=== PATIENT | male | born 1945 | race Two or more races ===

== ENCOUNTER → 2017-02-10 | Outpatient (CLI) | payer MEDICARE, MEDICAID ==
[2016-03-06 07:00] VITALS: BP 93/59
[~2017-02-10] MED LIST: ATOR10TA60 PO; FLUT1DIS3 IH; HYDR-2762 PO; IBUP-1060 PO; METH-38 PO; OMEP20CA9 PO; OXYC-327 PO; POLY17PO29 PO; PROAIR HFA8.5 GM INH; TAMS0.4C2 PO; ZOLP5TAB5 PO
[2017-02-10 11:22] LABS: BASO # 0.1 x10^3/uL (0.0-0.2); BASO % 1 % (0-3); EOS % 3 % (0-3); HEMATOCRIT 47.4 % (39.0-53.0); LYMPH # 2.6 x10^3/uL (1.0-4.8); LYMPH % 38 % (24-48); MEAN CORPUSCULAR HEMOGLOBIN 32 pg (25-35); MEAN CORPUSCULAR HGB CONC 34 g/dL (31-37); MEAN CORPUSCULAR VOLUME 94 fL (79-100); MONO % 9 % (0-9); NEUT % 49 % (31-73); PLATELET COUNT 191 x10^3/uL (140-400); RED BLOOD COUNT 5.05 x10^6/uL (4.30-5.70); RED CELL DISTRIBUTION WIDTH 13.3 % (11.5-14.5); WHITE BLOOD COUNT 6.8 x10^3/uL (4.0-11.0)
[2017-02-10 11:24] LABS: % SAT IRON 32 % (15-34); IRON,SERUM 120 ug/dL (65-175)
[2017-02-10 11:29] LABS: ALBUMIN 3.5 g/dL (3.4-5.0); ALBUMIN/GLOBULIN RATIO 0.8 (1.0-1.7); CALCIUM 8.8 mg/dL (8.5-10.1); GFR 73.2; TOTAL BILIRUBIN 0.6 mg/dL (0.2-1.0); TOTAL PROTEIN 7.7 g/dL (6.4-8.2); URIC ACID 4.7 mg/dL (3.5-7.2)
[2017-02-10 11:30] LABS: CHOLESTEROL/HDL RATIO 2.9
[2017-02-10 11:38] LABS: FOLATE 13.34 ng/ml (3.2-20.0); PROSTATE SPECIFIC ANTIGEN 0.16 ng/mL (0.00-4.00)
[2017-02-10 11:39] LABS: FREE T4 1.09 ng/dL (0.76-1.46)
[2017-02-10 18:10] LABS: TESTOSTERONE TOTAL 509 ng/dL (264-916)
[2017-02-11 00:11] LABS: VITAMIN D25(OH)TOTAL 7.3 ng/mL (30.0-100.0)
== END | disposition home or self-care (01) ==
LOC: LAB 10:14
PROVIDERS: ATTEND Family Medicine
DX: Z12.5 Encounter for screening for malignant neoplasm of prostate (principal); Z00.01 Encounter for general adult medical examination with abnormal findings; E78.5 Hyperlipidemia, unspecified; R53.83 Other fatigue
CPT/HCPCS: 36415; 80053; 80061; 82306; 82607; 82746; 83036; 83540; 83550; 84403; 84439; 84443; 84550; 85025; G0103

== ENCOUNTER → 2017-03-04 | Outpatient (CLI) | payer MEDICARE, MEDICAID ==
[2016-03-06 07:00] VITALS: BP 93/59
--- NOTE | 2017-03-05 08:22 | RAD ---
INDICATION: Low back pain and lower extremity radiculopathy. Back surgery. TECHNIQUE: Sagittal T1, sagittal T2, sagittal STIR, axial T1, and axial T2 sequences are provided. Comparison is from April 09, 2016. FINDINGS: Hardware artifact from pedicle screw and sandhya instrumentation is noted at L4-L5, decompression is noted at this level. Postoperative fluid collection noted on prior study has resolved. Slight anterolisthesis at L4-L5 is unchanged. There is no worrisome marrow lesion or marrow edema. There is diffuse disc desiccation, disc height is relatively maintained. The conus medullaris is normal in signal intensity and in position. Probable cyst in the right kidney measures 2.7 cm, partially included. Infrarenal aortic aneurysm measures 3.8 cm AP, both iliac arteries are borderline aneurysmal as well with diameter up to 2.2 cm. Subcutaneous edema is noted. The numbering system assumes 5 lumbar type vertebral bodies. Findings by individual level are as follows: L1-L2: There is a disc bulge and mild facet and ligamentum flavum hypertrophy. There is prominent epidural fat. Midline AP diameter of the thecal sac is mildly narrowed down to 9 mm. There is also minimal foraminal narrowing. L2-L3: There is facet hypertrophy and prominent epidural fat. Thecal sac is compressed with midline AP diameter 8 mm. There is decreased CSF surrounding the nerve roots. There is minimal left and mild right foraminal narrowing. L3-L4: There is facet hypertrophy. There is prominent epidural fat. There is no significant canal stenosis, midline AP diameter of the thecal sac is 11 mm. There is [id number] bilateral foraminal narrowing. L4-L5: In addition to the anterolisthesis there is a disc bulge. There is marked facet hypertrophy. There is mild canal stenosis with midline AP diameter of the thecal sac 9 mm. There is lateral recess narrowing bilaterally secondary to the facet hypertrophy. There is also at least moderate bilateral foraminal narrowing. L5-S1: Disc bulge and facet hypertrophy are noted with fluid in the facet joints. There is also prominent epidural fat. There is moderate canal stenosis, midline AP diameter of the thecal sac 7 mm. There is also high-grade bilateral foraminal narrowing. IMPRESSION: 1. Facet hypertrophy, epidural lipomatosis, and degenerative disc disease result in several levels of canal stenosis and foraminal narrowing. Much of the canal stenosis appears to be secondary to the epidural lipomatosis. Foraminal narrowing is predominantly secondary to facet hypertrophy. Overall, findings appear similar to prior study. 2. Redemonstrated abdominal aortic aneurysm. Electronically signed by: Sae Story MD (03/05/2017 8:19 AM) [id number]
== END | disposition home or self-care (01) ==
LOC: MRI 15:18
PROVIDERS: ATTEND Family Medicine
DX: M48.06 Spinal stenosis, lumbar region (principal); M51.16 Intervertebral disc disorders with radiculopathy, lumbar region; I71.4 Abdominal aortic aneurysm, without rupture; E88.2 Lipomatosis, not elsewhere classified
CPT/HCPCS: 72148

== ENCOUNTER 2017-03-12 12:48 | Emergency (ER) | payer MEDICARE, MEDICAID ==
[~2017-03-12] VITALS: Ht 167.6 cm; Wt 65.8 kg
--- NOTE | 2017-03-12 13:22 | PHYS DOC ---
Past Medical History Past Medical History: Asthma, Prostatitis, Other Additional Past Medical Histor: sleep apnea Past Surgical History: Tonsillectomy, Other Additional Past Surgical Histo: back sx, umbilical hernia, L wrist Alcohol Use: Rarely Drug Use: None Adult General Chief Complaint Chief Complaint: BACK PAIN - NO INJURY [facility] HPI Patient is a 71 year old male who presents with exacerbation and recurrence of his lumbar back pain that started 2-3 days ago and worsened today when he tried to get out of bed. Denies recent trauma. He status post L4-L5 lumbar laminectomy with fusion one year ago with Dr. Chawla. Patient denies any urinary or fecal retention or incontinence or saddle paresthesia. Patient is still able to walk but with pain. Pain radiates down both the posterior aspects of the legs. Movement makes it worse, moderate severity. Patient had an MRI from one week ago that showed some spinal stenosis and foraminal narrowing in the lumbar area, hardware was intact, stable abdominal aortic aneurysm at 3.8 cm. The patient has a referral to pain management clinic in the next 2 weeks. Review of Systems Review of Systems Constitutional: Denies fever or chills [] Eyes: Denies change in visual acuity, redness, or eye pain [] HENT: Denies nasal congestion or sore throat [] Respiratory: Denies cough or shortness of breath [] Cardiovascular: No additional information not addressed in HPI [] GI: Denies abdominal pain, nausea, vomiting, bloody stools or diarrhea [] : Denies dysuria or hematuria [] Musculoskeletal: Denies back pain or joint pain [] Integument: Denies rash or skin lesions [] Neurologic: Denies headache, focal weakness or sensory changes [] Endocrine: Denies polyuria or polydipsia [] Current Medications Current Medications Current Medications Medications (Trade) Dose Ordered Sig/Sukumar Start Time Stop Time Status Last Admin Dose Admin Hydromorphone HCl (Dilaudid) 1 mg 1X ONCE 03/12/17 13:30 03/12/17 13:31 DC 03/12/17 13:38 1 MG Ondansetron HCl (Zofran) 4 mg 1X ONCE 03/12/17 13:30 03/12/17 13:31 DC 03/12/17 13:37 4 MG Allergies Allergies Allergies Coded Allergies Type Severity Reaction Last Updated Verified Penicillins Allergy Intermediate 03/04/16 Yes Physical Exam Physical Exam Constitutional: Well developed, well nourished, no acute distress, non-toxic appearance. [] HENT: Normocephalic, atraumatic, bilateral external ears normal, oropharynx moist, no oral exudates, nose normal. [] Eyes: PERRLA, EOMI, conjunctiva normal, no discharge. [] Neck: Normal range of motion, no tenderness, supple, no stridor. [] Cardiovascular:Heart rate regular rhythm, no murmur [] Lungs & Thorax: Bilateral breath sounds clear to auscultation [] Abdomen: Bowel sounds normal, soft, no tenderness, no masses, no pulsatile masses. [] Skin: Warm, dry, no erythema, no rash. [] Back: No tenderness, no CVA tenderness. Mild right paraspinous tenderness in the lumbar area. [] Extremities: No tenderness, no cyanosis, no clubbing, ROM intact, no edema. [] Neurologic: Alert and oriented X 3, normal motor function, normal sensory function, no focal deficits noted. 2+ patellar reflexes bilaterally, 5 out of 5 motor strength with straight leg raise and plantarflexion of the ankle and dorsiflexion of great toes [] Psychologic: Affect normal, judgement normal, mood normal. [] Current Patient Data Vital Signs Vital Signs Date Time Temp Pulse Resp B/P (MAP) Pulse Ox O2 Delivery O2 Flow Rate FiO2 03/12/17 13:38 20 93 Room Air 03/12/17 13:04 98.1 78 132/76 (94) 98.1 Lab Values Laboratory Tests Test 03/12/17 13:05 Urine Collection Type Unknown Urine Color Yellow Urine Clarity Clear Urine pH 6.0 Urine Specific [place] <=1.005 Urine Protein Negative mg/dL (NEG-TRACE) Urine Glucose (UA) Negative mg/dL (NEG) Urine Ketones (Stick) Negative mg/dL (NEG) Urine Blood Negative (NEG) Urine Nitrite Negative (NEG) Urine Bilirubin Negative (NEG) Urine Urobilinogen Dipstick 0.2 mg/dL (0.2 mg/dL) Urine Leukocyte Esterase Negative (NEG) Urine RBC Rare /HPF (0-2) Urine WBC Rare /HPF (0-4) Urine Squamous Epithelial Cells Few /LPF Urine Bacteria Few /HPF (0-FEW) Urine Hyaline Casts /HPF EKG EKG [] Radiology/Procedures Radiology/Procedures [] Course & Med Decision Making Course & Med Decision Making Pertinent Labs and Imaging studies reviewed. (See chart for details) Patient is neurologically intact and pain is reasonably controlled for outpatient management. MRI report was reviewed by me which was accomplished one week ago and there is no acute emergent issues. I discussed MRI findings and results and clinical concerns with Dr. Chawla's mid-level provider and we have made arrangements for the patient to get follow-up either tomorrow or the next day in their office. [] Dragon Disclaimer Dragon Disclaimer This electronic medical record was generated, in whole or in part, using a voice recognition dictation system. Departure Departure Impression: Primary Impression: Lumbar radiculopathy Disposition: 01 HOME, SELF-CARE Condition: IMPROVED Referrals: GEORGIA MÉNDEZ MD (PCP) MANOJ CHAWLA MD Patient Instructions: Lumbosacral Radiculopathy FLORENCE HERRMANN MD Mar 12, 2017 13:22
[2017-03-12 13:30] LABS: BILIRUBIN,URINE NEGATIVE (NEG); GLUCOSE,URINE NEGATIVE (NEG); NITRITE,URINE NEGATIVE (NEG); PROTEIN,URINE NEGATIVE (NEG-TRACE); UROBILINOGEN,URINE 0.2 mg/dL (0.2 mg/dL)
[2017-03-12] MEDS ORDERED: ONDANSETRON PF 4 MG/2 ML VIAL. IV ONE (13:30)
[2017-03-12] MEDS ORDERED: HYDROmorphone 2 MG/ML VIAL IV ONE (13:30)
[2017-03-12 13:50] LABS: BACTERIA,URINE FEW /HPF (0-FEW)
[2017-03-12 13:55] LABS: RBC,URINE RARE /HPF (0-2); SQUAMOUS EPITHELIAL CELL,UR FEW /LPF; WBC,URINE RARE /HPF (0-4)
[2017-03-12 14:30] VITALS: BP 114/70
[2017-03-18] MEDS ORDERED: GABA-586 PO (11:16)
[2017-03-18] MEDS ORDERED: OXYC1TAB9 PO (11:17)
== END 2017-03-12 14:45 | disposition home or self-care (01) ==
LOC: ER 12:48
DX: M54.16 Radiculopathy, lumbar region (principal); J45.909 Unspecified asthma, uncomplicated; G47.30 Sleep apnea, unspecified; Z88.0 Allergy status to penicillin
CPT/HCPCS: 81001; 96374; 96375; 99284; J1170; J2405

== ENCOUNTER → 2017-03-18 | Outpatient (CLI) | payer MEDICARE, MEDICAID ==
[2017-03-12 14:30] VITALS: BP 114/70
[~2017-03-18] MED LIST changes: +GABA-586 PO; +IOHEXOL 180 MG/ML 10 ML VIAL. ONE; +OXYC1TAB9 PO; +methylPREDNISolone ACETATE 40 MG/ML VIAL. ONE; +methylPREDNISolone ACETATE 80 MG/ML VIAL. ONE
--- NOTE | 2017-03-18 19:56 | PAIN ---
DATE OF SERVICE: 03/18/2017 DIAGNOSIS: Lumbar radiculopathy with lumbar spinal stenosis and post-lumbar laminectomy syndrome. HISTORY OF PRESENT ILLNESS: The patient is a 72-year-old male who returns last seen 02/12/2016. He has since had surgery in February 2016. The patient reports he did well for about a year, but over the past month, the pain has been returning in his low back and bilateral lower extremities, essentially right equal to left. The patient reports it is radiating, constant, severe cramping, tingling, burning, aching, sharp and dull, alternating pain in the low back, bilateral lower extremities, mostly in the posterior aspect of the thighs and calves into the feet as well as some tingling and numbness in the left foot more than the right. The patient reports it is a 9 on a scale of 10 at its worst, is 5 on its least and is a 9 on average. The patient reports it has been increasing with activity, worse with standing, walking and changing positions and better with sitting or lying down. Reports it does awaken him from sleep occasionally. He has to reposition and is usually able to get back to sleep, is much worse with standing and walking, much better with sitting. The patient reports no new motor or sensory deficits, no new bowel or bladder incontinence. PAST MEDICAL HISTORY: Significant for arthritis, dizziness and cigarette smoking. CURRENT MEDICATIONS: Updated include tamsulosin, atorvastatin, zolpidem, albuterol inhaler, omeprazole, oxycodone, gabapentin and Advair. ALLERGIES: THE PATIENT IS ALLERGIC TO PENICILLIN. FAMILY HISTORY: Significant for no major medical problems or conditions that he is aware of. SOCIAL HISTORY: The patient drinks about 6 alcoholic drinks a week, usually beer. Smokes 1/2 a pack a day and has for the past 66 years. The patient is , lives on his own. His daughter does live near him and is with him today. REVIEW OF SYSTEMS: Positive for those items mentioned in the history of present illness. All systems reviewed and otherwise negative. It is complete, full and well documented on the patient's chart. PHYSICAL EXAMINATION: VITAL SIGNS: The patient's blood pressure is 141/66, pulse 77, respirations are 18, temperature is 97.9 degrees Fahrenheit. Height is 5 feet 6 inches, weight is 245 pounds. GENERAL: The patient is awake, alert, oriented, appropriate, very pleasant demeanor. HEENT: Head shows normocephalic, atraumatic. Extraocular movements are intact and symmetrical. Oral cavity shows mucous membranes moist and pink. Dentition is intact. NECK: Shows anterior throat supple without palpable lymphadenopathy noted. Swallow reflex is symmetrical. Neck shows full rotational motion of cervical spine both laterally as well as extension and flexion without difficulty or pain reported. CHEST: Shows normal with inspection. Breath sounds are clear to auscultation bilaterally. HEART: Shows S1, S2 clear. No murmurs auscultated. ABDOMEN: Obese, soft, nontender, nondistended. No palpable organomegaly. No rebound or guarding demonstrated. BACK: Shows grossly midline spine, normal cervical lordotic curvature, slight exaggeration of thoracic kyphosis and flattening of lumbar lordotic curvature is noted. Previous well-healed surgical scar is noted in the midline lumbar distribution. The patient's lumbar paraspinous musculature shows symmetrical with inspection. Palpation shows some moderate tenderness with palpation bilaterally, but only diffusely in the upper, middle and lower distribution of the paraspinous muscles, again right equal to left. The patient shows good rotational motion, however, of the lumbar spine both laterally as well as extension and flexion without significant pain reported. No tenderness over the sacrum and sacroiliac regions with palpation. EXTREMITIES: Lower extremities showed deep tendon reflexes 1+ in the patellar and tendo calcaneus tendons are equal. Motor exam is approximately 4 on a scale of 5, but equal dorsiflexion, extension, quadriceps and hamstring flexion and is symmetrical. Peripheral pulses are 1+ posterior tibial and dorsalis pedis pulses. No peripheral edema is noted. No clubbing, no cyanosis. Lower extremities are warm and dry to touch, equal in color and appearance. The patient is able to stand, has some difficulty rising from a sitting position and using a wheelchair to get to the office today, which he used from the facility, not one that he has on his own as he usually uses a scooter or cart by his report when he is at a store that has these available, but otherwise has a cane that he uses occasionally as well. Straight leg raise noted to be positive bilaterally about 45 degrees with decreased knee flexion, but is significantly tender with increasing pain radiating in the posterior gluteus and thighs with straight leg raise bilaterally. The patient is able to ambulate again, very difficult for him. He is unable to stand on his toes as he does not stand upright long enough to try this. IMPRESSION: 1. This is a 72-year-old male with 1 year ago lumbar laminectomy with posterior instrumentation and fusion with good results for about a year with pain returning over the past month or so at low back and bilateral lower extremities in a radicular fashion. 2. Recent MRI scan on 03/04/2017 showing facet hypertrophy, epidural lipomatosis degenerative disk disease with several levels of canal stenosis and foraminal narrowing much of ____ epidural lipomatosis with moderate canal stenosis, L5-S1 and high grade bilateral foraminal narrowing with mild canal stenosis at L4-L5 with lateral recess narrowing bilaterally as well. PLAN: Options were discussed with the patient and the patient's daughter who accompanies him to his visit today. We discussed conservative medical management, physical therapy, interventional techniques and he would like to pursue interventional techniques as he has some success with these in the past prior to his surgery. We discussed a caudal approach epidural steroid injection using description as well as anatomical models to describe the procedure. Risks were then discussed including, but not limited to bleeding, infection, possibility of epidural hematoma and subsequent neurologic compromise, dural puncture, headaches, spinal cord and/or nerve damage, side effects of steroid medication and poor results regarding pain control. The patient understands and wishes to proceed. The patient will return to clinic in approximately 2 weeks for followup, was counseled on his return appointment, activity level and side effects to be aware of. DIAGNOSIS: Lumbar radiculopathy with lumbar spinal stenosis and post-lumbar laminectomy syndrome. PROCEDURE: Caudal approach epidural steroid injection using C-arm fluoroscopic guidance under sterile prep and drape using local anesthetic. MEDICATION INJECTED: A total of 120 mg Depo-Medrol plus 10 mL preservative-free normal saline and 2 mL Isovue for contrast. CONDITION AT DISCHARGE: Stable. The patient tolerated the procedure well, had no complications. GRIFFIN MONTAÑO MD DR: JOSLYN/ilana JOB#: [id number] / [id number]
== END | disposition home or self-care (01) ==
LOC: PNCL 10:37
PROVIDERS: ATTEND Anesthesiology
DX: M48.06 Spinal stenosis, lumbar region (principal); M54.16 Radiculopathy, lumbar region; M96.1 Postlaminectomy syndrome, not elsewhere classified; F17.200 Nicotine dependence, unspecified, uncomplicated; Z72.89 Other problems related to lifestyle; M19.91 Primary osteoarthritis, unspecified site; E78.00 Pure hypercholesterolemia, unspecified; J44.9 Chronic obstructive pulmonary disease, unspecified; Z86.69 Personal history of other diseases of the nervous system and sense organs; Z87.39 Personal history of other diseases of the musculoskeletal system and connective tissue; Z88.0 Allergy status to penicillin; Z82.49 Family history of ischemic heart disease and other diseases of the circulatory system
CPT/HCPCS: 62323; J1030; J1040

== ENCOUNTER → 2017-03-19 | Outpatient (CLI) | payer MEDICARE, MEDICAID ==
[~2017-03-19] VITALS: Ht 167.6 cm; Wt 111.1 kg
[~2017-03-19] MED LIST changes: +CONTRAST GIVEN MC PRN; +IOHEXOL 180 MG/ML 10 ML VIAL. IT ONE; -IOHEXOL 180 MG/ML 10 ML VIAL. ONE; +LIDOCAINE 1% / SOD BICARB 8.4% 20 ML VIAL. IJ ONE; -methylPREDNISolone ACETATE 40 MG/ML VIAL. ONE; -methylPREDNISolone ACETATE 80 MG/ML VIAL. ONE
--- NOTE | 2017-03-19 13:49 | RAD ---
EXAM: Fluoroscopic guided lumbar puncture for lumbar CT myelography; lumbar spine CT Monogram; lumbar spine, 3 views. HISTORY: Pain. TECHNIQUE: The risks of the procedure were discussed with the patient and written] consent was obtained. A timeout was performed. Frontal, lateral and coned sacral views of the lumbar spine were obtained. The patient was placed in a prone position on the fluoroscopy table and a site overlying L3-L4 was selected for needle entry. The skin overlying this region was sterilely prepped, draped and infiltrated with 1% lidocaine. A spinal needle was advanced into the thecal sac. Appropriate needle tip positioning was confirmed with accumulation of CSF within the needle hub. Subsequently, 14 cc Omnipaque 180 intrathecal contrast was injected into the thecal sac. 2 fluoroscopic images were obtained. The total fluoroscopy time was 0.7 minutes. The needle was removed and sterile bandage was placed at the needle entry site. The patient was transferred to the CT suite for the postinjection CT portion of the exam. The patient was discharged one hour following the procedure in stable condition. There was no immediate complication. One or more of the following individualized dose reduction techniques were utilized for this examination: 1. Automated exposure control. 2. Adjustment of the mA and/or kV according to patient size. 3. Use of iterative reconstruction technique. COMPARISON: MRI dated 03/04/[address] dated 03/04/2016. FINDINGS: The pre myelogram lumbar spine images demonstrate instrumented posterior spinal fusion and laminectomy decompression at L4-L5. There is grade 1 anterolisthesis at this level measuring 4 mm. There is slight retrolisthesis of L1 on L2, L2 on L3 and L3 on L4. There is mild lumbar levoscoliosis centered at L3. There is degenerative endplate remodeling at all levels. There are partially bridging and bridging anterior osteophytes at the lower thoracic levels. There is a vacuum phenomenon and disc space narrowing at L5-S1. There is advanced facet arthropathy predominantly at L4-L5 and L5-S1. The CT myelogram portion of the exam demonstrates grade 1 anterolisthesis of L4 on L5, measuring 4 mm. There is grade 1 anterolisthesis of L5 on S1, measuring 3 mm. There is slight retrolisthesis of L1 on L2, L2 on L3 and L3 on L4. There is degenerative endplate remodeling with anterior spurring at the majority of the visualized thoracic and lumbar levels. No fracture is seen. No suspicious lytic or sclerotic osseous lesion is seen. There is instrumented posterior spinal fusion and laminectomy decompression at L4-L5. The transpedicular screws are in expected position. There is no evidence of instrumentation loosening or fracture. There is spurring involving the right greater than left sacroiliac joints. There is partial visualization of an abdominal aortic aneurysm, measuring at least 3.5 cm on the deodh-fj-ynwa. There is ectasia to mild aneurysmal dilatation of the proximal left internal iliac artery to a caliber of 1.6 cm. There is aortobiiliac atherosclerosis. The conus terminates at L1-L2. There is scarring within the midline posterior back soft tissues due to prior instrumented fusion. At L1-L2, there is a diffuse disc bulge and endplate osteophytosis. There is mild left facet arthropathy. There is dorsal epidural lipomatosis. There is slight retrolisthesis. There is mild bilateral foraminal and central canal stenosis. At L2-L3, there is a diffuse disc bulge and endplate osteophytosis. There is jktt-ly-[id number] right facet arthropathy. There is hypertrophy of the ligamentum flavum. There is dorsal epidural lipomatosis. There is slight retrolisthesis. There is moderate right greater than left foraminal stenosis. There is moderate central canal stenosis. At L3-L4, there is a diffuse disc bulge and endplate osteophytosis. There is moderate to severe bilateral facet arthropathy. There is hypertrophy of the ligamentum flavum. There is epidural lipomatosis. There is slight retrolisthesis. There is moderate to severe right and moderate left foraminal stenosis. There is mild to moderate central canal stenosis. At L4-L5, there is a left paracentral texture foraminal disc osteophyte complex composed and a disc bulge and endplate osteophytosis. There is severe facet arthropathy. There is instrumented posterior spinal fusion. There are laminectomy changes. There is grade 1 anterolisthesis. There is mild to moderate right and moderate to severe left foraminal stenosis. There is mild persistent effacement of the thecal sac despite laminectomy changes. At L5-S1, there is a there are left rib and right posterior lateral disc protrusions and osteophyte complex is superimposed on a disc bulge and endplate osteophytosis. There is severe right greater than left facet arthropathy. There is epidural lipomatosis. There is mild anterolisthesis. There is severe bilateral foraminal stenosis with complete effacement of the exiting nerve roots. There is moderate to severe central canal stenosis. IMPRESSION: 1. Multilevel degenerative change throughout the lumbar spine, described in detail above. This results in mild bilateral foraminal and central canal stenosis at L1-L2, moderate right greater left foraminal and central canal stenosis at L2-L3, moderate to severe right and moderate left foraminal and [id number] central canal stenosis at L3-L4, mild to moderate right and moderate to severe left foraminal and mild central canal stenosis at L4-L5, and severe bilateral foraminal and moderate to severe central canal stenosis at L5-S1. 2. Instrumented posterior spinal fusion with laminectomy decompression at L4-L5. 3. Grade 1 anterolisthesis of L4 on L5, and to lesser extent, L5 on S1. There is also mild retrolisthesis at the remainder of the lumbar levels and mild scoliosis. 4. Abdominal aortic aneurysm measuring at least 3.5 cm, partially excluded from the sagab-hj-ivwn. There is also suspected ectasia or aneurysmal dilatation of the left internal iliac artery to a caliber of 1.6 cm. 5. Epidural lipomatosis, contributing to narrowing of the thecal sac at the aforementioned levels.
[2017-03-19 14:05] VITALS: BP 120/79
== END | disposition home or self-care (01) ==
LOC: RAD 11:52
PROVIDERS: ATTEND Neurological Surgery
DX: E88.2 Lipomatosis, not elsewhere classified (principal); I71.4 Abdominal aortic aneurysm, without rupture; M48.06 Spinal stenosis, lumbar region; Z98.1 Arthrodesis status
CPT/HCPCS: 72100; 72132; 72265

== ENCOUNTER → 2017-04-01 | Outpatient (CLI) | payer MEDICARE, MEDICAID ==
[2017-03-19 14:05] VITALS: BP 120/79
[~2017-04-01] MED LIST changes: -CONTRAST GIVEN MC PRN; -IOHEXOL 180 MG/ML 10 ML VIAL. IT ONE; +IOHEXOL 180 MG/ML 10 ML VIAL. ONE; -LIDOCAINE 1% / SOD BICARB 8.4% 20 ML VIAL. IJ ONE; +methylPREDNISolone ACETATE 40 MG/ML VIAL. ONE; +methylPREDNISolone ACETATE 80 MG/ML VIAL. ONE
--- NOTE | 2017-04-01 11:33 | PAIN ---
DATE OF SERVICE: 04/01/2017 DIAGNOSES: Lumbar radiculopathy with lumbar spinal stenosis and post-lumbar laminectomy syndrome. The patient is a 72-year-old male who returns for followup status post caudal epidural steroid injection x 1. The patient reports approximately 50% improvement for about 1 week, but the pain returned fairly quickly in the low back, bilateral lower extremities. The patient reports it is only 50% improved, still has significant pain, still uses wheelchair, was still unable to ambulate comfortably even during that first week. The patient reports not been waking up from sleep at night; however, he has been lying down without difficulty. Sitting is much more comfortable. Standing and weightbearing is his main complaint. The patient reports his pain is a 9 on a scale of 10 at its worst, average about a 7, and it is currently a 5 on a scale of 10 today. The patient reports no new motor or sensory deficits, still significant pain with weightbearing, aching, tight, tingling, cramping, burning, constant radiating pain in the lower extremities bilaterally, becoming more severe. The patient reports no new motor or sensory deficits, no new motor or sensory changes. PHYSICAL EXAMINATION: VITAL SIGNS: Today, the patient's blood pressure is 105/66, pulse 81, respirations 18, temperature 98.3 degrees Fahrenheit. GENERAL: The patient is awake, alert, oriented, appropriate, very pleasant demeanor. HEENT: Head shows normocephalic and atraumatic. Extraocular movements are intact, symmetrical. Oral cavity, mucous membranes are moist and pink. Dentition is intact. NECK: Shows anterior throat supple without palpable lymphadenopathy noted. Swallow reflex is symmetrical. CHEST: Shows normal on inspection. Breath sounds are clear to auscultation bilaterally. HEART: Shows S1 and S2 clear. No murmurs auscultated. ABDOMEN: Soft, nontender, nondistended. No palpable organomegaly. No rebound or guarding demonstrated. BACK: The patient's back shows spine grossly in midline. Slight increase in thoracic kyphosis and mild flattening of lumbar lordotic curvature. Lumbar paraspinous musculature shows some moderate tenderness to palpation bilaterally in the lower lumbar distribution, but only diffusely without radiation. Well-healed surgical scar is again noted. EXTREMITIES: Lower extremities show deep tendon reflexes 1+ in the patellar and tendo calcaneus tendons are equal. Motor exam is approximately 3-4 on a scale of 5, but equal with dorsiflexion, extension, quadriceps and hamstring flexion. With standing the patient reports significant pain in the low back almost immediately upon weightbearing. Options were discussed with the patient. The patient's old chart was reviewed and his current medication regimen updated. Current review of systems is updated today as well. We will proceed with the second caudal approach epidural steroid injection today with fluoroscopic guidance. Risks were again discussed including, but not limited to bleeding, infection, possibility of epidural hematoma, subsequent neurologic compromise, dural puncture, headaches, spinal cord and/or nerve damage, side effects of steroid medication and poor results regarding pain control. The patient understands and wished to proceed. The patient will return to clinic in approximately 2 weeks for followup. He was counseled to return appointment, activity level and side effects to be aware of. DIAGNOSES: Lumbar radiculopathy with spinal stenosis and post-lumbar laminectomy syndrome. PROCEDURE: Caudal approach epidural steroid injection using C-arm fluoroscopic guidance and sterile prep and drape using local anesthetic. MEDICATION INJECTED: A total of 120 mg Depo-Medrol plus 10 mL preservative-free normal saline and 2 mL of Isovue for contrast. CONDITION AT DISCHARGE: Stable. The patient tolerated the procedure well and had no complications. GRIFFIN MONTAÑO MD DR: JOSLYN/ilana JOB#: [id number] / [id number]
== END | disposition home or self-care (01) ==
LOC: PNCL 09:54
PROVIDERS: ATTEND Anesthesiology
DX: M54.16 Radiculopathy, lumbar region (principal); M96.1 Postlaminectomy syndrome, not elsewhere classified; E78.00 Pure hypercholesterolemia, unspecified; J44.9 Chronic obstructive pulmonary disease, unspecified; K21.9 Gastro-esophageal reflux disease without esophagitis; F17.200 Nicotine dependence, unspecified, uncomplicated; Z72.89 Other problems related to lifestyle; Z86.69 Personal history of other diseases of the nervous system and sense organs; Z87.39 Personal history of other diseases of the musculoskeletal system and connective tissue; Z72.0 Tobacco use; Z88.0 Allergy status to penicillin
CPT/HCPCS: 62323; J1030; J1040

== ENCOUNTER 2017-04-29 07:13 | Day surgery (SDC) | payer MEDICARE, MEDICAID ==
[~2017-04-29 07:13] MED LIST changes: +BACITRACIN 50,000 UNIT in IV NORMAL SALINE 1000ML BAG 1,000 ML IRR ONE; +GABA600T2 PO; +HYDROmorphone 2 MG/ML VIAL IV PRN; -IOHEXOL 180 MG/ML 10 ML VIAL. ONE; +IV RINGERS,LACTATED 1000ML 1,000 ML IV SCH; +LIDOCAINE 1% PF 2 ML VIAL. ID PRN; +MORPHINE SULFATE 2 MG/ML DISP.SYRIN. IV PRN; +ONDANSETRON PF 4 MG/2 ML VIAL. IV PRN; +PROCHLORPERAZINE 10 MG/2 ML VIAL. IV PRN; +VANCOMYCIN 1GM IVPB FOR OMNI 250 ML IV PRN; +fentaNYL PF VIAL 100 MCG/2 ML VIAL IV PRN; -methylPREDNISolone ACETATE 40 MG/ML VIAL. ONE; -methylPREDNISolone ACETATE 80 MG/ML VIAL. ONE
[2017-04-29] MEDS ORDERED: LIDOCAINE 1%/EPI 1:100,000 20 ML VIAL. ONE (07:14)
[2017-04-29] MEDS ORDERED: THROMBIN TOPICAL 20,000 UNIT SPRAY.SYRN KIT TP ONE (07:14)
[2017-04-29] MEDS ORDERED: BUPIVACAINE 0.5% 50 ML VIAL. ONE (07:14)
[2017-04-29] MEDS ORDERED: GELATIN SPONGE SIZE 100. ONE (07:14)
[2017-04-29] MEDS ORDERED: REMIFENTANIL 2 MG VIAL. IV ONE (07:58)
[2017-04-29] MEDS ORDERED: fentaNYL PF VIAL 100 MCG/2 ML VIAL ONE (07:58)
[2017-04-29] MEDS ORDERED: ROCURONIUM 50 MG/5 ML VIAL. ONE (08:01)
[2017-04-29] MEDS ORDERED: PROPOFOL 100 ML IV ONE (08:01)
[2017-04-29] MEDS ORDERED: LIDOCAINE 2% PF Vial for OR 5 ML VIAL. ONE (08:02)
[2017-04-29] MEDS ORDERED: ONDANSETRON PF 4 MG/2 ML VIAL. ONE (08:02)
[2017-04-29] MEDS ORDERED: 0.9 % SODIUM CHLORIDE 50 ML VIAL. IJ ONE (08:02)
[2017-04-29] MEDS ORDERED: PROPOFOL 20 ML IV ONE (08:02)
[2017-04-29] MEDS ORDERED: DEXAMETHASONE SOD PHOS 20 MG/5 ML VIAL. ONE ×2 (08:02→10:41)
[2017-04-29] MEDS ORDERED: GLYCOPYRROLATE 1 MG/5 ML VIAL. ONE (09:49)
[2017-04-29] MEDS ORDERED: NEOSTIGMINE 10 MG/10 ML VIAL. ONE (10:28)
--- NOTE | 2017-04-29 11:13 | PDOC ---
BRIEF OPERATIVE NOTE Date: Apr 29, 2017 Pre-Op Diagnosis lumbar stenosis, lumbar radiculopathy, lumbar spondylosis Post-Op Diagnosis same Procedure Performed procedure aborted (prior to any incision) due to problems with stereotaxis needed for safe completion of procedure Surgeon Norma Business Education Teacher none Anesthesia Type: General Blood Loss no incision MANOJ CHAWLA MD Apr 29, 2017 11:13
--- NOTE | 2017-04-29 11:14 | DISCH ---
DISCHARGE INSTRUCTIONS Condition on Discharge Condition on Discharge: Stable Activity After Discharge Activity Instructions for Disc: Resume previous activity Driving Instructions after Dis: Do not drive today Follow-Up Follow up with: Office will notify patient of rescheduling of procedure. MANOJ CHAWLA MD Apr 29, 2017 11:14
--- NOTE | 2017-04-29 11:21 | RAD ---
CT study of the lumbar spine without contrast Indications: Back pain. Lumbar radiculopathy. History of lumbar fusion. Comparison: March 19, 2017. Technique: Noncontrast helical CT scanning of the lumbar spine was performed. Multiplanar 2-D reconstructions were generated. RS Compliance Statement: One or more of the following individualized dose reduction techniques were utilized for this examination: 1. Automated exposure control 2. Adjustment of the mA and/or kV according to patient size 3. Use of iterative reconstruction technique Findings: No acute compression fracture is evident. No discitis or osteolytic process is seen. Mild levoscoliosis is seen. Again seen are bilateral transpedicular screws at L4 and L5 connected by 2 vertical metallic stabilizer bars. Alignment is stable. The transverse processes are intact. At L1-2, there is a moderate diffuse disc protrusion and mild degenerative endplate spurring which extends into the inferior aspect of the neural foramina bilaterally. Mild retrolisthesis is seen. Facet arthropathy and ligamentum flavum hypertrophy is seen. These findings combine to form a moderate to severe spinal canal stenosis. There is moderate narrowing of the neural foramina bilaterally. These findings have not changed significantly. At L2-3, there is a moderate diffuse disc protrusion and mild degenerative endplate spurring which extends into the inferior aspect of the neural remnant bilaterally. Mild retrolisthesis is seen. Facet arthropathy and ligamentum flavum hypertrophy is seen. These findings combine to form a moderate to severe spinal canal stenosis. There is moderate narrowing of the neural foramina bilaterally. These findings have not changed significantly. At L3-4, moderate diffuse disc protrusion and mild degenerative endplate spurring is seen which extends into the inferior aspect of the neural foramina bilaterally. Mild retrolisthesis is seen. Degenerative facet arthropathy and ligamentum flavum hypertrophy is seen. These findings combine to form a moderate to severe spinal canal stenosis. There is moderate narrowing of the right neural foramen and severe narrowing of the left neural foramen. These findings are unchanged. At L4-5, grade 1 anterolisthesis is seen. There is a moderate diffuse disc protrusion and mild degenerative endplate spurring which extends into the inferior aspect of the neural foramina bilaterally. Facet arthropathy and ligamentum flavum hypertrophy is seen. These findings combine to form a moderate to severe spinal canal stenosis. There is a partial midline decompressive laminectomy at this level. There is moderate neural foraminal narrowing bilaterally. These findings have not changed significantly. At L5-S1, minimal grade 1 anterolisthesis is seen. There is a moderate diffuse disc protrusion and mild degenerative endplate spurring which extends into the inferior aspect of the neural foramina bilaterally. Degenerative facet arthropathy and ligamentum flavum hypertrophy is seen. These findings combine to form a moderate spinal canal stenosis. Epidural lipomatosis is seen at this level as well. There is severe narrowing of the neural foramina bilaterally. There is narrowing of the upper lateral recesses bilaterally worse on the right side with more prominent facet spurring on the right side. Therefore, impingement of the descending right S1 nerve root is possible. These findings are unchanged. Again seen is an abdominal aortic aneurysm and ectasia of the common iliac arteries bilaterally worse on the right side. This aneurysm is not seen completely seen. It measures at least 3.6 cm in greatest transverse dimension. There is a 3 cm hypodense nodule of the posterior mid aspect of the right kidney which is unchanged from March 04, [address] study. It measures 30 Hounsfield units. This may represent a hyperdense cyst and may be confirmed sonographically. IMPRESSION: Stable L4-5 fusion. Stable abnormalities of the lumbar spine since March 19, 2017. No acute compression fracture or discitis is seen. Overall stable study. 3 cm indeterminate nodule of the right kidney. Recommend renal sonography for further evaluation. Abdominal aortic aneurysm measuring at least 3.6 cm in greatest transverse dimension.
[2017-04-29] MEDS ORDERED: ALPRAZolam 0.25 MG TABLET PO ONE (12:00)
[2017-04-29 12:45] VITALS: BP 134/74
== END 2017-04-29 13:20 | disposition home or self-care (01) ==
LOC: SURHIP 07:13 → UNDOADMIN 07:13 → OPS 07:13 → EDSTATUS 08:30 → OPS 13:20
PROVIDERS: ATTEND Neurological Surgery
PROC: 01NB0ZZ Release Lumbar Nerve, Open Approach (ICD-10-PCS; principal; 2017-04-29 08:30)
DX: M47.26 Other spondylosis with radiculopathy, lumbar region (principal); Z53.9 Procedure and treatment not carried out, unspecified reason; M48.061 Spinal stenosis, lumbar region without neurogenic claudication; J44.9 Chronic obstructive pulmonary disease, unspecified; K21.9 Gastro-esophageal reflux disease without esophagitis; F17.200 Nicotine dependence, unspecified, uncomplicated; Z98.41 Cataract extraction status, right eye; Z98.42 Cataract extraction status, left eye; Z86.69 Personal history of other diseases of the nervous system and sense organs; Z87.39 Personal history of other diseases of the musculoskeletal system and connective tissue; Z88.0 Allergy status to penicillin; Z72.0 Tobacco use; Z79.01 Long term (current) use of anticoagulants
CPT/HCPCS: 36415; 63047; 72131; 80053; 85025; 85610; 85730; 86850; 86900; 86901; 87641; J1100; J2405; J2704; J2710; J3010; J3370; J3490; J7030; J7120; J2001

== ENCOUNTER 2017-05-06 06:31 | Inpatient (IN) | payer MEDICARE, MEDICAID ==
[~2017-05-06] VITALS: Ht 167.6 cm; Wt 113.4 kg
[~2017-05-06 06:31] MED LIST changes: -HYDROmorphone 2 MG/ML VIAL IV PRN; -IV RINGERS,LACTATED 1000ML 1,000 ML IV SCH; -LIDOCAINE 1% PF 2 ML VIAL. ID PRN; -MORPHINE SULFATE 2 MG/ML DISP.SYRIN. IV PRN; -ONDANSETRON PF 4 MG/2 ML VIAL. IV PRN; -PROCHLORPERAZINE 10 MG/2 ML VIAL. IV PRN; -fentaNYL PF VIAL 100 MCG/2 ML VIAL IV PRN
[2017-05-06] MEDS ORDERED: fentaNYL PF VIAL 100 MCG/2 ML VIAL IV PRN ×3 (07:00→14:30)
[2017-05-06] MEDS ORDERED: IV RINGERS,LACTATED 1000ML 1,000 ML IV SCH (07:00)
[2017-05-06] MEDS ORDERED: ONDANSETRON PF 4 MG/2 ML VIAL. IV PRN ×2 (07:00→14:30)
[2017-05-06] MEDS ORDERED: PROCHLORPERAZINE 10 MG/2 ML VIAL. IV PRN (07:00)
[2017-05-06] MEDS ORDERED: LIDOCAINE 1% PF 2 ML VIAL. ID PRN (07:00)
[2017-05-06] MEDS ORDERED: GELATIN SPONGE SIZE 100. ONE (07:20)
[2017-05-06] MEDS ORDERED: BUPIVACAINE MPF 0.5% 30 ML VIAL. ONE (07:20)
[2017-05-06] MEDS ORDERED: LIDOCAINE 1%/EPI 1:100,000 20 ML VIAL. ONE (07:21)
[2017-05-06] MEDS ORDERED: THROMBIN TOPICAL 20,000 UNIT SPRAY.SYRN KIT TP ONE (07:21)
[2017-05-06] MEDS ORDERED: ONDANSETRON PF 4 MG/2 ML VIAL. ONE (08:03)
[2017-05-06] MEDS ORDERED: LIDOCAINE 2% PF Vial for OR 5 ML VIAL. ONE (08:03)
[2017-05-06] MEDS ORDERED: PHENYLEPHRINE 10 MG/ML VIAL. ONE (08:03)
[2017-05-06] MEDS ORDERED: PROPOFOL 20 ML IV ONE (08:03)
[2017-05-06] MEDS ORDERED: DEXAMETHASONE SOD PHOS 20 MG/5 ML VIAL. ONE (08:03)
[2017-05-06] MEDS ORDERED: ROCURONIUM 50 MG/5 ML VIAL. ONE (08:04)
[2017-05-06] MEDS ORDERED: REMIFENTANIL 2 MG VIAL. IV ONE ×2 (08:04→11:43)
[2017-05-06] MEDS ORDERED: fentaNYL PF VIAL 100 MCG/2 ML VIAL ONE ×2 (08:04→14:03)
[2017-05-06] MEDS ORDERED: MIDAZOLAM HCL/PF 2 MG/2 ML VIAL. ONE (08:10)
[2017-05-06] MEDS ORDERED: PROPOFOL 0 ML IV ONE ×2 (08:11→12:06)
[2017-05-06] MEDS ORDERED: 0.9 % SODIUM CHLORIDE 50 ML VIAL. IJ ONE (11:43)
[2017-05-06] MEDS ORDERED: DESFLURANE > 120 MINUTES IH ONE (13:16)
[2017-05-06] MEDS ORDERED: PROPOFOL 50 ML IV ONE (13:45)
[2017-05-06] MEDS: fentaNYL PF VIAL 100 MCG/2 ML VIAL IV PRN ×4 (14:25→16:22)
--- NOTE | 2017-05-06 14:29 | PDOC ---
BRIEF OPERATIVE NOTE Date: May 06, 2017 Pre-Op Diagnosis lumbar spondylosis, lumbar stenosis, lumbar radiculopathy Post-Op Diagnosis same Procedure Performed bilateral L5-S1 laminectomy, inspection of L4-5 fusion, replacement of L4-5 instrumentation, posterolateral instrumented fusion extension L5-S1, right L3-4 hemilaminotomy, use of CT guided stereotaxis Surgeon Norma Produce Shipper none Anesthesia Type: General Blood Loss 100mL Specimens Obtained decompression Findings stenosis L5-S1, right L3-4, intact fusion L4-5, extensive scar tissue, neuromonitoring remained at least baseline throughout the procedure Complications none apparent MANOJ CHAWLA MD May 06, 2017 14:29
[2017-05-06] MEDS ORDERED: diphenhydrAMINE HCL 25 MG CAPSULE PO PRN (14:30)
[2017-05-06] MEDS ORDERED: ACETAMINOPHEN 325 MG TABLET. PO PRN (14:30)
[2017-05-06] MEDS ORDERED: MAG HYDROX/ALUMINUM HYD/SIMETH 30 ML ORAL.SUSP PO PRN (14:30)
[2017-05-06] MEDS ORDERED: NALOXONE 0.4 MG/ML VIAL. IV PRN (14:30)
[2017-05-06] MEDS ORDERED: 0.9 % SODIUM CHLORIDE 10 ML DISP.SYRIN. IV PRN (14:30)
[2017-05-06] MEDS ORDERED: MAGNESIUM HYDROXIDE 2,400 MG/30 ML ORAL.SUSP. PO PRN (14:30)
[2017-05-06] MEDS ORDERED: oxyCODONE/APAP 5/325 1 TAB TABLET PO PRN (14:30)
[2017-05-06] MEDS ORDERED: diphenhydrAMINE 50 MG/ML VIAL IV PRN (14:30)
[2017-05-06] MEDS ORDERED: ZOLPIDEM 5 MG TABLET. PO PRN (14:30)
[2017-05-06] MEDS ORDERED: CALCIUM CARBONATE 500 MG TAB.CHEW PO PRN (14:30)
[2017-05-06] MEDS ORDERED: ALBUTEROL SULFATE 2.5 MG/3 ML NEBU. NEB PRN (14:45)
[2017-05-06] MEDS: MORPHINE SULFATE 4 MG/ML DISP.SYRIN. IV PRN ×4 (14:55→15:24)
[2017-05-06] MEDS: HYDROmorphone 2 MG/ML VIAL IV PRN ×2 (15:28→15:38)
[2017-05-06] MEDS ORDERED: ALBUTEROL SULFATE 2.5 MG/3 ML NEBU. NEB SCH (16:00)
[2017-05-06 16:45] VITALS: BP 98/69
[2017-05-06 17:00] VITALS: BP 110/70
[2017-05-06 18:00] VITALS: BP 101/69
[2017-05-06] MEDS: CALCIUM CARB/VIT D3 500/200 TABLET. PO SCH (18:00)
[2017-05-06] MEDS: FERROUS SULFATE 325 MG TABLET. PO SCH (18:00)
[2017-05-06 18:13] VITALS: BP 115/66
[2017-05-06] MEDS ORDERED: ATOR20TA58 PO (19:41)
[2017-05-06] MEDS ORDERED: BUDESONIDE 0.5 MG/2 ML NEBU. NEB SCH (20:00)
[2017-05-06] MEDS ORDERED: NON FORMULARY ITEM (Fluticasone/Salmeterol (Advair 250-50 Diskus) 1 PUFF) IH SCH (21:00)
[2017-05-06] MEDS: METHOCARBAMOL 750 MG TABLET PO SCH (21:00)
[2017-05-06] MEDS: DOCUSATE SODIUM 100 MG CAPSULE. PO SCH (21:00)
[2017-05-06] MEDS: SENNOSIDES/DOCUSATE 8.6/50MG TABLET. PO SCH (21:00)
[2017-05-06] MEDS: ATORVASTATIN CALCIUM 20 MG TABLET PO SCH (21:00)
[2017-05-06] MEDS: ADVAIR DISKUS 250/50 INH SCH (21:34)
[2017-05-06] MEDS: ZOLPIDEM 5 MG TABLET. PO SCH (21:34)
[2017-05-06] MEDS: TAMSULOSIN 0.4 MG CAP.ER.24H. PO SCH (21:35)
[2017-05-06] MEDS: GABAPENTIN 300 MG CAPSULE. PO SCH (21:36)
[2017-05-06] MEDS: VENTOLIN INHALER INH PRN (21:37)
[2017-05-06] MEDS: oxyCODONE/APAP 5/325 1 TAB TABLET PO PRN (21:42)
[2017-05-06 22:46] VITALS: BP 102/54
[2017-05-07 03:10] VITALS: BP 80/54
[2017-05-07 03:42] VITALS: BP 99/61
[2017-05-07] MEDS: oxyCODONE/APAP 5/325 1 TAB TABLET PO PRN ×5 (04:31→21:20)
[2017-05-07 06:21] VITALS: BP 97/58
[2017-05-07] MEDS: GABAPENTIN 300 MG CAPSULE. PO SCH ×2 (08:00→21:18)
[2017-05-07] MEDS: CALCIUM CARB/VIT D3 500/200 TABLET. PO SCH ×2 (08:00→16:58)
[2017-05-07] MEDS: OMEPRAZOLE 20 MG CAP PO SCH (08:34)
[2017-05-07] MEDS: ADVAIR DISKUS 250/50 INH SCH ×2 (08:36→21:16)
[2017-05-07] MEDS: FERROUS SULFATE 325 MG TABLET. PO SCH ×2 (08:36→16:58)
[2017-05-07] MEDS: SENNOSIDES/DOCUSATE 8.6/50MG TABLET. PO SCH ×2 (08:37→21:18)
[2017-05-07] MEDS: DOCUSATE SODIUM 100 MG CAPSULE. PO SCH ×2 (08:37→21:17)
[2017-05-07] MEDS: MULTIVITAMIN with MINERAL TABLET. PO SCH (08:37)
[2017-05-07] MEDS: METHOCARBAMOL 750 MG TABLET PO SCH ×3 (08:37→21:19)
[2017-05-07] MEDS: POLYETHYLENE GLYCOL 3350 17 GM PACKET. PO SCH ×2 (08:37→19:28)
[2017-05-07] MEDS: VENTOLIN INHALER INH PRN ×2 (08:41→21:17)
--- NOTE | 2017-05-07 10:09 | PDOC ---
SUBJECTIVE Subjective Reports improvement of leg pain and numbness since surgery. One episode of left leg pain with sitting, now resolved. Reports some incisional pain. Has ambulated with walker without problem but refused PT this AM due to pain. OBJECTIVE Vital Signs Vital Signs Date Time Temp Pulse Resp B/P (MAP) Pulse Ox O2 Delivery O2 Flow Rate FiO2 05/07/17 08:39 16 Room Air 05/07/17 06:21 98.2 63 18 97/58 (71) 96 BiPAP/CPAP 98.2 05/07/17 04:31 20 05/07/17 03:42 99/61 (74) 05/07/17 03:10 98.6 73 12 80/54 (63) 93 Room Air 98.6 05/06/17 22:46 98.1 75 18 102/54 (70) 93 BiPAP/CPAP 98.1 05/06/17 21:42 20 05/06/17 20:00 Nasal Cannula 2.0 05/06/17 19:35 97 Nasal Cannula 2.0 05/06/17 19:00 20 05/06/17 18:13 97.6 76 20 115/66 (82) 96 Nasal Cannula 2.0 97.6 05/06/17 18:00 101/69 (80) 05/06/17 17:00 110/70 (83) 05/06/17 16:45 98.6 74 20 98/69 (79) 95 Nasal Cannula 2.0 98.6 05/06/17 16:22 14 05/06/17 16:04 20 05/06/17 15:38 97.5 80 13 111/66 94 Nasal Cannula 3 97.5 05/06/17 15:38 12 05/06/17 15:28 14 05/06/17 15:28 23 05/06/17 15:24 21 05/06/17 15:23 86 21 111/65 92 Nasal Cannula 3 05/06/17 15:15 20 Nasal Cannula 2.0 05/06/17 15:08 59 23 103/75 90 Nasal Cannula 2 05/06/17 15:05 24 05/06/17 14:55 18 05/06/17 14:53 86 23 116/72 93 Simple Mask 10 05/06/17 14:40 16 05/06/17 14:38 85 24 102/57 92 Simple Mask 10 05/06/17 14:25 18 11/14/17 14:23 97.8 86 24 103/65 92 Simple Mask 10 97.8 I & O Intake and Output 05/07/17 06:59 Intake Total 2530 ml Output Total 2450 ml Balance 80 ml Intake Oral 480 ml IV Total 2050 ml Output Urine Total 2350 ml Estimated Blood Loss 100 ml # Voids 2 PHYSICAL EXAM Physical Exam AA, NAD, lying in bed, LANDRY 5/5, sensation intact LT, dressing with mild ss stain , dry/intact. ASSESSMENT/PLAN Assessment/Plan POD 1 lami/fusion extension -appears to be recovering well overall thus far -increase activities/therapy as able -d/c when able to better mobilize Problems: MANOJ CHAWLA MD May 07, 2017 10:08
[2017-05-07 11:15] VITALS: BP 100/57
--- NOTE | 2017-05-07 15:04 | OP ---
DATE OF SURGERY: 05/06/2017 SURGEON: Rigoberto Chawla MD NUCLEAR SPECTROSCOPIST: None. PREOPERATIVE DIAGNOSES: 1. Lumbar stenosis. 2. Lumbar spondylosis. 3. Lumbar radiculopathy. POSTOPERATIVE DIAGNOSES: 1. Lumbar stenosis. 2. Lumbar spondylosis. 3. Lumbar radiculopathy. ANESTHESIA: General. COMPLICATIONS: None intraprocedurally. Intraoperative use of neuro monitoring remained at least baseline throughout the procedure. PROCEDURE: Bilateral laminectomy of L5-S1 with inspection of prior L4-L5 fusion, replacement of instrumentation L4-L5 with extension of instrumentation to L5-S1 with posterolateral L5-S1 fusion, which is an extension of the observed intact L4-L5 fusion. Stereotactic acquisition of marrow fusion substrate from iliac crest through same incision. Right hemilaminotomy/foraminotomy L3-L4. Intraoperative use of microscope. Intraoperative use of CT-guided stereotaxis. Intraoperative use of live neuromonitoring. ANESTHESIA: General. COMPLICATIONS: None intraprocedurally. INDICATIONS FOR THE PROCEDURE: The patient is a 72-year-old gentleman who had a prior lumbar 4-5 laminectomy and fusion with improvement of leg pain. He has developed increased pain down the posterior aspect of both lower extremities and he has been refractory to nonsurgical treatments. Imaging revealed increased adjacent stenosis to the prior fusion construct. Please refer to the patient's chart for additional detail. DESCRIPTION OF THE PROCEDURE: After informed consent was obtained, the patient was brought into the operating room. He was placed under general anesthesia. Neuro monitoring was instituted and baseline potentials were obtained. He was placed in the prone position on the Jovan table. All pressure points were checked and padded appropriately. The lumbar region was prepped and draped in the usual sterile fashion and stereotactic array was instituted into the left iliac crest. A 3D image was obtained with C-arm with good stereotactic localization. This was fused to prior stereotactic CT with good localization. The patient's prior lumbar incision was reopened with a 10 blade scalpel. Monopolar electrocautery was utilized to dissect the avascular midline to the spinous processes at L5-S1 and bilaterally across the lamina at this location. Prior laminectomy sites were identified using stereotaxis over the scar tissue. Significant scar tissue was encountered and this was removed from the region of decompression. Prior instrumentation was dissected free. It was removed utilizing [employer] instruments, which was the same instrumentation that was done prior. Prior to removal of the prior instrumentation, it was noted that the bilateral L5 screws were somewhat loose. However, the prior osseous fusion was inspected thoroughly and was noted to be solid at L4-5. Anatomical landmarks as well as stereotaxis was utilized to institute bilateral sacral 1 screws and a stereotactic awl with live neuro monitoring was utilized to create a trajectory bilaterally at sacral 1 utilizing neuro monitoring as well. A tap was utilized with live neuro monitoring bilaterally at sacral 1 to further create the trajectories. Then 6.5 x 40 mm screws were instituted with good purchase. Prior to the institution of placement of the L4-L5 pedicle screws, a right hemilaminotomy was performed just medial to the right L4 screw utilizing pneumatic drill as well as a Kerrison rongeur. Dissection was carried down such that the hemilaminotomy was completed as well as a foraminotomy on the right at L3-L4. The decompression was verified with direct visualization and gentle palpation at this location upon completion. A bilateral laminectomy was also performed at lumbar 5, sacral 1. This was performed with a pneumatic drill as well as Kerrison rongeur. The thecal sac was noted to be very compressed upon initiation of decompression and was very well decompressed upon completion of the bilateral laminectomy. Lateral recesses were also decompressed with a Kerrison rongeur. All decompression was completed utilizing the microscope for visualization. Upon completion of this the prior hardware was completely removed. 7.5 x 45 mm screws were instituted in the prior trajectories bilaterally at lumbar 5 with good purchase and 7.5 x 50 mm screws were instituted bilaterally at lumbar 4 with good purchase. Of note, the prior removed screws were 6.5 mm diameter. All screw placement was with live stimulation/ neuromonitoring. Upon completion of this, rods were instituted. 60 mm curved rods were instituted bilaterally at lumbar 4-5 and sacral 1. This was secured with setscrews and torqued according to the cable tower operator's specification. Prior to the final placement of screws, the lateral bone was decorticated at lumbar 5, sacral 1 and allograft mixed with autograft substrate was instituted. The autograft substrate was obtained stereotactically utilizing a Jamshidi needle into the left iliac crest to obtain bone marrow. Upon completion of the construct and decompression, the wound was generously irrigated with antibiotic irrigation. Pristine hemostasis was achieved with FloSeal, cottonoids and some use of bipolar electrocautery. Fluoroscopy was utilized to verify the appropriate position of the fusion construct and attention was turned to closure subsequently. The muscles and fascia were then reapproximated with 0 Vicryl in a simple interrupted fashion. Subcutaneous tissues were reapproximated with 2-0 Vicryl in an interrupted inverted fashion and the skin was reapproximated with regis. The wound was dressed with Telfa, 4x4s and Tegaderm. The stereotactic reference array was removed. The sites were irrigated with antibiotic irrigation and sealed with Dermabond. At the end of procedure, all needle and sponge counts were correct x 2. The patient tolerated the procedure well and was extubated in the operating room and taken to recovery in stable condition. Neuromonitoring remained at least baseline throughout the entire procedure. There were no intraprocedural complications apparent. RIGOBERTO CHAWLA MD DR: RUBÉN/ilana JOB#: [id number] / [id number] BASIL
[2017-05-07 15:06] VITALS: BP 110/58
--- NOTE | 2017-05-07 17:16 | PATHOLOGY ---
PATHOLOGY REPORT * * * * * * * * FINAL DIAGNOSIS: Segments of fibrocartilaginous and skeletal muscle tissue and bone, lumbar decompression: - Degenerative changes of fibrocartilaginous tissue. COMMENT: There is no evidence of an acute inflammatory process or malignancy. (JPM:db; 04/29/2017) REPORT ELECTRONICALLY SIGNED BY: Redd Niño M.D. DATE/TIME: 05/07/2017 17:15 * * * * * * * * GROSS PATHOLOGY: Received in formalin labeled "Real Dominguez, lumbar decompression," are multiple segments of cedeno, rubbery and gritty tissue measuring 4.9 x 5.4 x 1.2 cm in aggregate dimensions, containing small fragments of bone. The tissue is submitted representatively in cassette A1. (TSD; 05/06/2017) INITIAL CPT CODE(S): A; 57750 Professional services performed [place] [facility] [place] [address] Technical services performed by [facility] at [address] [place] [address], [facility] [address], [place] [address]. SPECIMEN(S) RECEIVED: A.Lumbar decompression CLINICAL HISTORY: Lumbar stenosis PATIENT: REAL DOMINGUEZ /AGE: 903/13/1945 (Age: 72) PATIENT #: [id number] ALT CASE #: SPECIMEN COLLECTION DATE: 05/06/2017 SPECIMEN RECEIVED DATE: 05/06/2017 [facility] - [address] [place] [address] - PHONE: [phone] * * * END OF REPORT * * *
[2017-05-07 18:04] VITALS: BP 113/63
[2017-05-07] MEDS ORDERED: PNEUMOC CONJ VACC 23-VALENT 0.5 ML VIAL. VAX IM ONE (21:00)
[2017-05-07] MEDS: ATORVASTATIN CALCIUM 20 MG TABLET PO SCH (21:00)
[2017-05-07] MEDS: TAMSULOSIN 0.4 MG CAP.ER.24H. PO SCH (21:18)
[2017-05-07] MEDS: ZOLPIDEM 5 MG TABLET. PO SCH (22:18)
[2017-05-08] MEDS: oxyCODONE/APAP 5/325 1 TAB TABLET PO PRN ×2 (04:55→09:07)
[2017-05-08] MEDS ORDERED: POLYETHYLENE GLYCOL 3350 17 GM PACKET. PO PRN (07:45)
[2017-05-08] MEDS: OMEPRAZOLE 20 MG CAP PO SCH (08:58)
--- NOTE | 2017-05-08 08:58 | PDOC ---
SUBJECTIVE Subjective Reports residual left leg pain. Denies right leg pain. Incisional pain controlled with meds. Ambulating without significant problem. Denies other changes. OBJECTIVE Vital Signs Vital Signs Date Time Temp Pulse Resp B/P (MAP) Pulse Ox O2 Delivery O2 Flow Rate FiO2 05/08/17 04:55 20 BiPAP/CPAP 05/07/17 21:20 20 05/07/17 18:04 97.2 69 16 113/63 (80) 94 Room Air 97.2 05/07/17 18:04 15 Room Air 05/07/17 16:59 16 Room Air 05/07/17 15:06 97.9 67 18 110/58 (75) 93 Room Air 97.9 05/07/17 12:55 16 Room Air 05/07/17 11:15 97.7 66 18 100/57 (71) 93 97.7 I & O Intake and Output 05/08/17 07:00 Intake Total 1620 ml Output Total 0 ml Balance 1620 ml Intake Oral 1620 ml Stool Total 0 ml # Voids 1 PHYSICAL EXAM Physical Exam AAOx4, NAD, LANDRY 5/5, incision/dressing with some serous stain, some archie- incisional ecchymoses, sensation intact LT ASSESSMENT/PLAN Assessment/Plan POD 2 lami and fusion extension -continue mobilization/PT -medrol dose pack for inflammation -daily dressing changes -anticipate d/c soon, likely today if continues to recover well Problems: COMMENT Lab Laboratory Tests Test 05/07/17 11:10 Glucose (Fingerstick) 103 mg/dL (70-99) MANOJ CHAWLA MD May 08, 2017 08:58
[2017-05-08] MEDS: ADVAIR DISKUS 250/50 INH SCH (08:59)
[2017-05-08] MEDS: VENTOLIN INHALER INH PRN (08:59)
[2017-05-08] MEDS: GABAPENTIN 300 MG CAPSULE. PO SCH ×2 (09:00→09:02)
[2017-05-08] MEDS: FERROUS SULFATE 325 MG TABLET. PO SCH (09:06)
[2017-05-08] MEDS: METHOCARBAMOL 750 MG TABLET PO SCH (09:06)
[2017-05-08] MEDS: MULTIVITAMIN with MINERAL TABLET. PO SCH (09:06)
[2017-05-08] MEDS: SENNOSIDES/DOCUSATE 8.6/50MG TABLET. PO SCH (09:06)
[2017-05-08] MEDS: CALCIUM CARB/VIT D3 500/200 TABLET. PO SCH (09:06)
[2017-05-08] MEDS: DOCUSATE SODIUM 100 MG CAPSULE. PO SCH (09:06)
[2017-05-08] MEDS ORDERED: FLU VACC QS2017-18 (36MOS+)/PF 0.5 ML SYRINGE. VAX IM ONE (10:45)
[2017-05-08] MEDS ORDERED: SENN-37 PO (11:51)
[2017-05-08] MEDS ORDERED: METH-38 PO (11:52)
[2017-05-08] MEDS ORDERED: OXYC-323 PO (11:54)
[2017-05-08] MEDS ORDERED: METH4TAB2 PO (11:54)
[2017-05-08 13:28] VITALS: BP 110/60
--- NOTE | 2017-06-04 09:18 | DS ---
DATE OF DISCHARGE: 05/08/2017 DIAGNOSES: Include lumbar spondylosis, lumbar stenosis Lumbar radiculopathy. HOSPITAL COURSE: The patient is a 72-year-old gentleman who had a prior lumbar 4-5 instrumented decompression and fusion who developed adjacent level disease and increased lower extremity pain. He was refractory to conservative treatments. On 05/06/2017, he underwent a bilateral L5-S1 laminectomy with inspection of his prior L4-L5 fusion with screw replacement of L4-L5 instrumentation and a posterolateral instrumented fusion extension to L5-S1 with a right L3-L4 hemilaminotomy. This is all with the use of CT-guided stereotaxis and live neuromonitoring. It was noted that he had stenosis at L5-S1, right L3-L4. There was an intact fusion at L4-L5. There was extensive scar tissue and neuromonitoring remained at least baseline throughout the procedure. Postoperatively, he was admitted to the floor. He reported improvement of the right lower extremity pain. There was some left lower extremity numbness that persisted. He worked with physical therapy with gradual improvement, and his pain medication regimen was optimized for him over the next couple of days. On 05/08/2017, he continued to improve and was working well with physical therapy. Physical Therapy recommended discharge with a wheeled walker. He was discharged on 05/08/2017 in good condition. He was discharged with prescriptions for pain medication, muscle relaxant, stool softener. Instructed to avoid any lifting over 10 pounds, strenuous activity, twisting, bending or other activities which produce distress in the lumbar region. He is to keep the incision clean and dry, not to soak, scrub or submerge the incision. He is to follow up in 2 weeks with Neurosurgery and call with any problems, questions or concerns. MANOJ CHAWLA MD DR: RUBÉN/ilana JOB#: [id number] / [id number] BASIL
== END 2017-05-08 13:43 | disposition home or self-care (01) | DRG 460 ==
LOC: OPSVCIP 06:31 → 4 SOUTHEST 16:56
PROVIDERS: ADMIT Neurological Surgery; ATTEND Neurological Surgery
PROC: 0SG3071 Fusion of Lumbosacral Joint with Autologous Tissue Substitute, Posterior Approach, Posterior Column, Open Approach (ICD-10-PCS; 2017-05-06)
PROC: 4A11X4G Monitoring of Peripheral Nervous Electrical Activity, Intraoperative, External Approach (ICD-10-PCS; 2017-05-06)
PROC: 5A09357 Assistance with Respiratory Ventilation, Less than 24 Consecutive Hours, Continuous Positive Airway Pressure (ICD-10-PCS; 2017-05-06)
PROC: 07DR3ZZ Extraction of Iliac Bone Marrow, Percutaneous Approach (ICD-10-PCS; principal; 2017-05-06 08:30)
PROC: 5A09357 Assistance with Respiratory Ventilation, Less than 24 Consecutive Hours, Continuous Positive Airway Pressure (ICD-10-PCS; 2017-05-08)
DX: M48.061 Spinal stenosis, lumbar region without neurogenic claudication (principal); M47.26 Other spondylosis with radiculopathy, lumbar region; Z98.1 Arthrodesis status; Z87.891 Personal history of nicotine dependence; Z88.0 Allergy status to penicillin
CPT/HCPCS: 36415; 76000; 82962; 86850; 86900; 86901; 88304; 94250; C1713; J0780; J1100; J1170; J2250; J2270; J2405; J2704; J3010; J3370; J3490; J7030; J7120; J7613; J7626; 97116; 97530; J2001

== ENCOUNTER → 2017-05-22 | Outpatient (CLI) | payer MEDICARE, MEDICAID ==
[2017-05-08 13:28] VITALS: BP 110/60
[~2017-05-22] MED LIST changes: +ATOR20TA58 PO; -BACITRACIN 50,000 UNIT in IV NORMAL SALINE 1000ML BAG 1,000 ML IRR ONE; +METH4TAB2 PO; +OXYC-323 PO; +SENN-37 PO; -VANCOMYCIN 1GM IVPB FOR OMNI 250 ML IV PRN
--- NOTE | 2017-05-22 13:41 | RAD ---
LUMBAR SPINE 2-3V AP, lateral Clinical Indication: SPONDYLOSIS Comparison: Lumbar spine radiographs dated 03/19/[address] dated 04/29/2017, fluoroscopic images dated 05/06/2017 Findings: There are 5 nonrib-bearing lumbar-type vertebral bodies. Extension of the posterior fusion hardware now including the L4 through the S1 levels. No evidence of hardware failure. No significant change in 0.7 cm anterolisthesis of L4 on L5. Vertebral body heights are maintained. Moderate multilevel degenerative changes of the visualized spine. There are vascular calcifications with incompletely evaluated but known infrarenal abdominal aortic aneurysm. IMPRESSION: 1. Extension of posterior fusion hardware now including the L4 through the S1 levels. No evidence of hardware failure. 2. No significant change in 0.7 cm anterolisthesis of L4 on L5. 3. Moderate multilevel degenerative changes of the visualized spine.
== END | disposition home or self-care (01) ==
LOC: RAD 11:59
PROVIDERS: ATTEND Neurological Surgery
DX: M47.816 Spondylosis without myelopathy or radiculopathy, lumbar region (principal); I71.4 Abdominal aortic aneurysm, without rupture
CPT/HCPCS: 72100

== ENCOUNTER → 2017-06-09 | Outpatient (CLI) | payer MEDICARE, MEDICAID ==
[~2017-06-09] MED LIST changes: +GADOBUTROL 10 MMOL/10 ML VIAL IV ONE
[2017-06-09 14:51] LABS: BASO # 0.1 x10^3/uL (0.0-0.2); BASO % 1 % (0-3); EOS % 2 % (0-3); HEMATOCRIT 46.7 % (39.0-53.0); HEMOGLOBIN 15.5 g/dL (13.0-17.5); LYMPH % 29 % (24-48); MEAN CORPUSCULAR HEMOGLOBIN 32 pg (25-35); MEAN CORPUSCULAR HGB CONC 33 g/dL (31-37); MEAN CORPUSCULAR VOLUME 97 fL (79-100); MONO % 10 % (0-9); NEUT % 58 % (31-73); PLATELET COUNT 255 x10^3/uL (140-400); RED BLOOD COUNT 4.83 x10^6/uL (4.30-5.70); RED CELL DISTRIBUTION WIDTH 14.3 % (11.5-14.5); WHITE BLOOD COUNT 6.9 x10^3/uL (4.0-11.0)
--- NOTE | 2017-06-09 16:53 | RAD ---
MRI Lumbar Spine without and with contrast History: Low back pain, recent lumbar fusion Technique: Multiplanar, multi sequential pre and postcontrast MR imaging was performed of the lumbar spine. Contrast: 10 cc Gadavist Comparison: March 04, 2017 Findings: Lumbar vertebral body stature is unchanged, within normal limits. There is slightly increased grade 1 anterior spondylolisthesis at L4-5. There are bilateral pedicle screws at L4, L5, S1, previously only at L4-L5. Exam does not accurately evaluate integrity of hardware. There could be some edema of the L5 and S1 vertebral bodies on the left about the screws although appearance may be artifactual from the hardware. There is now very large fluid collection extending from site of interval posterior decompression at L5-S1 extending to the posterior subcutaneous fat and extending just beneath the skin surface. This in greatest dimension measures 7.7 cm AP by 5 cm transverse by up to 12 cm cc. This does not result in significant mass effect upon the thecal sac at the L5-S1 level, although difficult to exclude communication with the thecal sac such as at the level of the inferior aspect of L5. There is again facet hypertrophic change at the L4-5 level which contributes to moderate to severe left and [id number] right lateral recess stenosis, some preserved subarachnoid space more centrally. There is again facet hypertrophic change and disc osteophyte complex at the L3-4 level. There is also multilevel epidural lipomatosis with variable attenuation of the thecal sac and effacement of subarachnoid space most notable at the mid aspect of L4 and at the mid aspect of L3, findings not significantly changed. There is also attenuation of the thecal sac greater posteriorly and on the left at the L2-3 level by epidural lipomatosis. There is also facet hypertrophic change at more superior levels of the lumbar spine. There is fairly severe left and at least moderate right L3-4 neural foramina compromise as seen previously. Accurate evaluation of the neural foramina at L4-5 and L5-S1 is limited due to artifact from hardware. Conus terminates at the L1 level. There is infrarenal abdominal aortic aneurysm which is not fully included, to at least 4 cm. There is also some dilatation of the common iliac arteries greater on the right also not fully included. Likely right renal cysts are not fully included. Impression: 1. Comparing with February 2017 exam, there is now posterolateral fusion hardware L4 S1, previously seen at L4-5. There has been posterior decompression at L5-S1 level, large fluid collection at site of posterior decompression extending into the posterior paraspinous soft tissues and just beneath the skin surface of uncertain sterility, pseudomeningocele not excludable. As seen previously, there is variable attenuation of the thecal sac with effacement of the subarachnoid space at the L4 and L3 levels by epidural lipomatosis in combination with facet hypertrophic change. There is left greater than right L3-4 neural foramina compromise. 2. Infrarenal abdominal aortic aneurysm is not fully included, up to at least 4 cm. Electronically signed by: Walter Rolon MD (06/09/2017 4:49 PM) [email or web address]
== END | disposition home or self-care (01) ==
LOC: MRI 14:26
PROVIDERS: ATTEND Neurological Surgery
DX: M43.16 Spondylolisthesis, lumbar region (principal); M25.78 Osteophyte, vertebrae; E88.2 Lipomatosis, not elsewhere classified; I71.4 Abdominal aortic aneurysm, without rupture
CPT/HCPCS: 72158; 85025; 85651; A9585; 36415; 86141

== ENCOUNTER → 2017-06-25 | Outpatient (CLI) | payer MEDICARE, MEDICAID ==
[~2017-06-25] MED LIST changes: -ATOR10TA60 PO; -ATOR20TA58 PO; -FLUT1DIS3 IH; -GABA-586 PO; -GABA600T2 PO; -GADOBUTROL 10 MMOL/10 ML VIAL IV ONE; -HYDR-2762 PO; -IBUP-1060 PO; +LIDOCAINE WITH 8.4% SOD BICARB 3 ML DISP.SYRIN. IJ; -METH-38 PO; -METH4TAB2 PO; -OMEP20CA9 PO; -OXYC-323 PO; -OXYC-327 PO; -OXYC1TAB9 PO; -POLY17PO29 PO; -PROAIR HFA8.5 GM INH; -SENN-37 PO; -TAMS0.4C2 PO; -ZOLP5TAB5 PO
[2017-06-25] MEDS: LIDOCAINE WITH 8.4% SOD BICARB 3 ML DISP.SYRIN. IJ (11:14)
== END | disposition home or self-care (01) ==
LOC: RAD 10:06
DX: M43.10 Spondylolisthesis, site unspecified (principal); Z98.890 Other specified postprocedural states
CPT/HCPCS: 10022; 76942; 87071; 87075; 87205

== ENCOUNTER → 2017-07-29 | Outpatient (CLI) | payer MEDICARE, MEDICAID | END | disposition home or self-care (01) | LOC: RAD 12:07 | DX: M17.0 Bilateral primary osteoarthritis of knee (principal) | CPT/HCPCS: 73562; 73565 ==

== ENCOUNTER → 2018-03-24 | Outpatient (CLI) | payer MEDICARE, MEDICAID ==
[2017-06-25 12:15] VITALS: BP 102/66
[~2018-03-24] MED LIST changes: +ATOR10TA60 PO; +ATOR20TA58 PO; +FLUT1DIS3 IH; +GABA-586 PO; +GABA600T2 PO; +HYDR-2762 PO; +IBUP-1060 PO; -LIDOCAINE WITH 8.4% SOD BICARB 3 ML DISP.SYRIN. IJ; +METH-38 PO; +METH4TAB2 PO; +OMEP20CA9 PO; +OXYC-323 PO; +OXYC-327 PO; +OXYC-411 PO; +POLY17PO29 PO; +PROAIR HFA8.5 GM INH; +SENN-37 PO; +TAMS0.4C2 PO; +ZOLP5TAB5 PO
--- NOTE | 2018-03-24 13:08 | RAD ---
Examination: CHEST PA LATERAL History: CHEST CONGESTION, SOB Comparison/Correlation: None Findings: PA and lateral views of the chest were obtained. Heart size normal. Pulmonary vasculature is borderline. No focal consolidation or effusion. Old right rib fractures are present. Mild pulmonary hyperinflation is present. No pneumothorax. Impression: Borderline pulmonary vasculature congestion. Electronically signed by: Ramone Barcenas MD (03/24/2018 1:04 PM) [id number]
[2018-03-24 13:10] LABS: BASO # 0.1 x10^3/uL (0.0-0.2); BASO % 1 % (0-3); EOS # 0.1 x10^3/uL (0.0-0.7); EOS % 3 % (0-3); HEMATOCRIT 46.7 % (39.0-53.0); HEMOGLOBIN 15.9 g/dL (13.0-17.5); LYMPH # 1.7 x10^3/uL (1.0-4.8); LYMPH % 31 % (24-48); MEAN CORPUSCULAR HEMOGLOBIN 31 pg (25-35); MEAN CORPUSCULAR HGB CONC 34 g/dL (31-37); MEAN CORPUSCULAR VOLUME 91 fL (79-100); MONO # 0.5 x10^3/uL (0.0-1.1); MONO % 8 % (0-9); NEUT # 3.1 x10^3uL (1.8-7.7); NEUT % 57 % (31-73); PLATELET COUNT 236 x10^3/uL (140-400); RED BLOOD COUNT 5.11 x10^6/uL (4.30-5.70); RED CELL DISTRIBUTION WIDTH 14.3 % (11.5-14.5); WHITE BLOOD COUNT 5.5 x10^3/uL (4.0-11.0)
[2018-03-24 13:29] LABS: ALBUMIN 3.5 g/dL (3.4-5.0); ALBUMIN/GLOBULIN RATIO 0.9 (1.0-1.7); CALCIUM 8.9 mg/dL (8.5-10.1); GFR 72.8; POTASSIUM 4.4 mmol/L (3.5-5.1); TOTAL BILIRUBIN 0.6 mg/dL (0.2-1.0); TOTAL PROTEIN 7.5 g/dL (6.4-8.2)
[2018-03-24 13:30] LABS: CHOLESTEROL/HDL RATIO 2.8
[2018-03-24 13:40] LABS: FREE T4 1.07 ng/dL (0.76-1.46); THYROID STIM HORMONE (TSH) 1.933 uIU/mL (0.358-3.74)
== END | disposition home or self-care (01) ==
LOC: LAB 12:08
PROVIDERS: ATTEND Family Medicine
DX: Z12.5 Encounter for screening for malignant neoplasm of prostate (principal); E78.5 Hyperlipidemia, unspecified; R09.89 Other specified symptoms and signs involving the circulatory and respiratory systems; M17.0 Bilateral primary osteoarthritis of knee; E78.00 Pure hypercholesterolemia, unspecified; J44.9 Chronic obstructive pulmonary disease, unspecified; K21.9 Gastro-esophageal reflux disease without esophagitis; Z87.891 Personal history of nicotine dependence; Z87.39 Personal history of other diseases of the musculoskeletal system and connective tissue; Z86.69 Personal history of other diseases of the nervous system and sense organs; Z82.49 Family history of ischemic heart disease and other diseases of the circulatory system
CPT/HCPCS: 36415; 71046; 80053; 80061; 82306; 82378; 82607; 82746; 84439; 84443; 85025; G0103

== ENCOUNTER → 2018-07-01 | Outpatient (CLI) | payer MEDICARE, MEDICAID ==
[2017-06-25 12:15] VITALS: BP 102/66
[~2018-07-01] MED LIST changes: +ALBU2.5V8 INH; -GABA-586 PO; +GABA300C18 PO; -HYDR-2762 PO; +HYDR-2765 PO; -OXYC-323 PO; -OXYC-327 PO; +OXYC1TAB15 PO; +OXYC1TAB19 PO; -PROAIR HFA8.5 GM INH
--- NOTE | 2018-07-01 12:49 | RAD ---
MRI Lumbar Spine without contrast History: Worsening low back pain with bilateral leg radiculopathy left greater than right, history of lumbar fusion Technique: Multiplanar, multi sequential noncontrast MR imaging was performed of the lumbar spine. Comparison: June 09, 2017 Findings: Lumbar vertebral body stature is maintained. There is again grade 1 anterior spondylolisthesis at L4-5 and negligible anterior spondylolisthesis L5-S1. Conus terminates at L1. There is again posterolateral fusion hardware with bilateral pedicle screws L4, L5, S1. Exam does not accurately evaluate integrity of hardware. There is much smaller residual fluid collection at site of posterior decompression centered near L5 now measuring about 3 cm CC by 2 cm AP by 1.8 cm transverse. There could be some mild edema about the left L4 pedicle screw although limited evaluation due to artifact from hardware. There is relatively mild degenerative disc disease L4-5 and L5-S1, mild disc desiccation at more superior levels. There is infrarenal abdominal aortic aneurysm up to about 4.5 cm, incompletely imaged previously although may be slightly larger. There is exophytic T2 hyperintense lesion of the visualized right kidney about 3.1 cm as seen previously, more likely a cyst. L1-L2: There is again prominence of posterior epidural fat, mild buckling of the ligamentum flavum, mild facet degenerative change. There is negligible disc osteophyte complex. There is mild attenuation of the thecal sac mostly from posterior epidural lipomatosis. There is minimal disc osteophyte complex more eccentric to the extraforaminal regions greater on the left without significant impingement of the extraforaminal nerve roots. Left neural foramen is adequate. There is mild to moderate posterior narrowing of the right neural foramen by facet. L2-L3: There is again prominence of posterior epidural fat, moderate to severe facet degenerative change, and mild to moderate buckling of the ligamentum flavum. There is again moderate to severe attenuation of the thecal sac primarily from posterior epidural lipomatosis with limited preserved subarachnoid space. There is minimal disc osteophyte complex more eccentric to the inferior neural foramina, right greater than left. There is mild narrowing of the right neural foramen, left neural foramen overall adequate. L3-L4: There is again moderate to severe facet degenerative change. There is mild buckling of the ligamentum flavum. There has been posterior decompression at L4. There is again disc osteophyte complex now with superimposed shallow protrusion. There is now indentation upon the ventral thecal sac in the right lateral recess with increased mild right lateral recess stenosis at the intervertebral disc space level. There is again mild transverse narrowing of the central canal at the intervertebral disc space level. There is moderate to severe neural foramina compromise bilaterally by disc osteophyte complex and facet degenerative change as seen previously. As seen previously, there is a greater degree of moderate to severe attenuation of the thecal sac at the mid aspect of L3 due to more prominent anterior epidural lipomatosis. L4-L5: There is again bilateral facet hypertrophic change. There again has been posterior decompression. There is again partial uncovering of the posterior aspect of the disc due to spondylolisthesis. There is mild residual narrowing of the far right lateral recess, now left laminectomy defect. Accurate evaluation of the neural foramina is limited due to artifact from hardware. There may be mild to moderate narrowing of the right neural foramen and to lesser degree on the left although poorly characterized. L5-S1: There again has been posterior decompression, spinal canal widely patent. Accurate evaluation of the neural foramina is limited due to artifact from hardware. There is facet hypertrophic change. There could be at least moderate neural foramina compromise bilaterally although poorly characterized. Impression: 1. There again has been posterolateral fusion L4-S1. Previously seen posterior fluid collection at L5 is much smaller. There is now shallow protrusion in the right lateral recess at L3-4 with resultant mild right lateral recess stenosis, decreased left lateral recess stenosis at L4-5 at which there is left laminectomy defect present. There is again moderate to severe attenuation of the thecal sac at L2-3 mostly from epidural lipomatosis, also at the mid aspect of L3. 2. There is again moderate to severe neural foramina compromise bilaterally at L3-4, also probable degree of neural foramina compromise bilaterally at L4-5 and L5-S1 although poorly characterized at these levels due to artifact from hardware. There is mild to moderate narrowing of the right L1-2 neural foramen. 3. There is infrarenal abdominal aortic aneurysm up to about 4.5 cm, may be somewhat larger. Electronically signed by: Walter Rolon MD (07/01/2018 12:45 PM) [email or web address]
== END | disposition home or self-care (01) ==
LOC: MRI 09:28
PROVIDERS: ATTEND Family Medicine
DX: M48.061 Spinal stenosis, lumbar region without neurogenic claudication (principal); M51.26 Other intervertebral disc displacement, lumbar region; M43.16 Spondylolisthesis, lumbar region; M25.78 Osteophyte, vertebrae; G89.29 Other chronic pain; I71.4 Abdominal aortic aneurysm, without rupture; E88.2 Lipomatosis, not elsewhere classified
CPT/HCPCS: 72148

== ENCOUNTER → 2018-07-28 | Outpatient (CLI) | payer MEDICARE, MEDICAID ==
[2017-06-25 12:15] VITALS: BP 102/66
[~2018-07-28] MED LIST changes: +CONTRAST GIVEN. MC PRN; -GABA600T2 PO; +GABA600T7 PO; +IOHEXOL 350 MG/ML 100 ML VIAL. IV ONE
[2018-07-28 14:07] LABS: GFR 72.8
--- NOTE | 2018-07-28 16:26 | RAD ---
Examination: CT ANGIOGRAPHY ABD AND PELVIS History: AAA WITHOUT RUPTURE
IV OMNI 350 90 MLS Comparison/Correlation: None Findings: Axial images of the abdomen and pelvis were obtained prior to and following IV contrast according to arteriography protocol. Sagittal and coronal reformatted images provided. 3-D volume rendered surface shaded display image provided. Mild emphysematous involvement of the lung bases noted. Chronic bronchitis noted with bronchial wall thickening evident at the lower lobes especially. Multiple calculi are present within the gallbladder. No biliary dilatation or inflammatory changes. Unenhanced liver, spleen, pancreas, and adrenal glands are normal. Bilateral renal cysts are present. No hydronephrosis or radiopaque collecting system calculus. Urinary bladder is unremarkable. Moderate quantity of stool in the colon noted. No extraluminal gas. No bowel obstruction. Superior mesenteric, inferior mesenteric, and celiac arteries are widely patent. Right and left main renal arteries are patent. Small saccular outpouching at the distal abdominal aorta superior to the inferior mesenteric artery origin measuring up to 1.7 cm longitudinal by 0.9 cm anteroposterior by 1.4 cm transverse is present. Saccular aneurysm at the posterior aspect of the abdominal aortic bifurcation is present measuring 3.8 cm longitudinal by 4.1 cm transverse by by 4 cm anteroposterior. Right common iliac artery aneurysm measuring 4.2 cm longitudinal by 2.6 cm in anteroposterior by 2.6 cm transverse is present. Left common iliac artery aneurysm measuring 2.7 cm longitudinal by 2.4 cm transverse by 2.6 cm anteroposterior is present. Left internal iliac arterial aneurysm also is present measuring up to 1.5 cm transverse. Exaggerated lordosis of the lumbar spine is present. L4-S1 spinal rods are present. Laminectomy defects at L4-L5 are present. L5 Impression: Distal abdominal aortic saccular aneurysm. 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 No abdominal aortic dissection or intramural hematoma. Cholelithiasis. Electronically signed by: Ramone Barcenas MD (07/28/2018 4:22 PM) [facility]
== END | disposition home or self-care (01) ==
LOC: CT 13:15
DX: I71.4 Abdominal aortic aneurysm, without rupture (principal); K80.20 Calculus of gallbladder without cholecystitis without obstruction; I72.3 Aneurysm of iliac artery; M40.47 Postural lordosis, lumbosacral region; N28.1 Cyst of kidney, acquired; J43.9 Emphysema, unspecified; J42 Unspecified chronic bronchitis; Z87.891 Personal history of nicotine dependence
CPT/HCPCS: 36415; 74174; 82565; 84520; Q9967

== ENCOUNTER → 2018-08-04 | Outpatient (CLI) | payer MEDICARE, MEDICAID ==
[2017-06-25 12:15] VITALS: BP 102/66
[~2018-08-04] MED LIST changes: -CONTRAST GIVEN. MC PRN; +IOHEXOL 180 MG/ML 10 ML VIAL. ONE; -IOHEXOL 350 MG/ML 100 ML VIAL. IV ONE; +IPRA4AER IH; +OMEP20CA10 PO; -OMEP20CA9 PO; +OXYB5TAB7 PO; +methylPREDNISolone ACETATE 40 MG/ML VIAL. ONE; +methylPREDNISolone ACETATE 80 MG/ML VIAL. ONE
--- NOTE | 2018-08-04 12:13 | PAIN ---
DATE OF SERVICE: 08/04/2018 DIAGNOSES: Lumbar radiculopathy with lumbar spinal stenosis and post-lumbar laminectomy syndrome. HISTORY OF PRESENT ILLNESS: The patient is a 73-year-old male who returns for followup status post caudal epidural steroid injections, last seen 04/01/2017. The patient reports he did well with this for about a month or so after the injections. The pain was decreased, but now increasing over the past six months or so in the low back, bilateral lower extremities, posterior gluteus, posterior thighs, more on the left than the right, but into the posterior calf and ankles bilaterally. The patient reports it is aching, sharp, tight, cramping, tingling, burning, becoming more constant, sometimes severe, unbearable with walking, standing, change in positions. The patient is using a walker to ambulate at all times. The patient reports it usually does not awaken him from sleep at night, better with sitting or lying down, but much worse with walking activity, changing position. The patient reports it is a 9 on a scale of 10 at its worst, 9 on average and 8 at its least and is an 8 today. The patient reports no new motor or sensory deficits. He did have a new MRI scan, which we discussed with he and his daughter today with a previous fusion L4 through S1 with a shallow protrusion right lateral recess at L3-L4, decreased left lateral recess stenosis L4-L5 and [id number] neural foraminal compromise bilaterally at L3-L4, bilaterally at L4-L5 and L5-S1 as well. The patient reports no loss of motor function, but significant fatigability with even standing or walking for more than 5-10 minutes, decreased with sitting down and resting. PHYSICAL EXAMINATION: VITAL SIGNS: Today, the patient's blood pressure is 121/69, pulse 88, respirations 18, temperature is 99.3 degrees Fahrenheit, weight is 252 pounds. GENERAL: The patient is awake, alert, oriented, appropriate, very pleasant demeanor. HEENT: Shows normocephalic, atraumatic. Extraocular movements are intact and symmetrical. Oral cavity: Mucous membranes moist and pink. Dentition is intact. NECK: Shows anterior throat supple without palpable lymphadenopathy noted. Swallow reflex is symmetrical. CHEST: Shows normal on inspection. Breath sounds clear to auscultation bilaterally. HEART: Shows S1, S2 clear. No murmurs auscultated. ABDOMEN: Soft, nontender, nondistended. No palpable organomegaly is noted. No rebound or guarding demonstrated. BACK: Shows spine grossly in the midline. Normal appearing thoracic kyphosis and lumbar lordotic curvature is slightly flattened. Lumbar paraspinous musculature shows symmetrical on inspection. On palpation shows some moderate tenderness, but only diffusely throughout the upper, middle and lower distribution of the paraspinous musculature without significant radiation. EXTREMITIES: The patient's lower extremities show deep tendon reflexes at 1+ in the patellar and tendo-calcaneus tendons. Motor exam is strong with dorsiflexion, extension, quadriceps and hamstring flexion, approximately 4 on a scale of 5, but equal and symmetrical bilaterally. Peripheral pulses are 1+ posterior tibial. No peripheral edema is noted bilaterally. Options were discussed with the patient. The patient's old chart was reviewed as his current medication regimen and updated. Current review of systems is updated today as well. We will proceed with a caudal approach epidural steroid injection, the first in the series today with fluoroscopic guidance. Risks were again discussed including, but not limited to bleeding, infection, possibility of epidural hematoma, subsequent neurologic compromise, dural puncture, headaches, spinal cord and/or nerve damage, side effects of steroid medication and poor results regarding pain control. The patient understands and wished to proceed. The patient to return to clinic in approximately 2 weeks for followup, was counseled on return appointment, activity level, and side effects to be aware of. DIAGNOSIS: Lumbar radiculopathy with lumbar spinal stenosis, lumbar post-laminectomy syndrome. PROCEDURE: Caudal approach epidural steroid injection using C-arm fluoroscopic guidance under sterile prep and drape using local anesthetic. MEDICATION INJECTED: A total of 120 mg Depo-Medrol plus 10 mL of preservative-free normal saline and 2 mL of Isovue for contrast. CONDITION AT DISCHARGE: Stable. The patient tolerated the procedure well, had no complications. GRIFFIN MONTAÑO MD DR: JOSLYN/ilana JOB#: [id number] / [id number]
== END | disposition home or self-care (01) ==
LOC: PNCL 10:30
PROVIDERS: ATTEND Anesthesiology
DX: M48.061 Spinal stenosis, lumbar region without neurogenic claudication (principal); M96.1 Postlaminectomy syndrome, not elsewhere classified; M54.16 Radiculopathy, lumbar region; Z88.0 Allergy status to penicillin
CPT/HCPCS: 62323; J1030; J1040; Q9965

== ENCOUNTER → 2018-08-18 | Outpatient (CLI) | payer MEDICARE, MEDICAID ==
[2017-06-25 12:15] VITALS: BP 102/66
--- NOTE | 2018-08-18 23:36 | PAIN ---
DATE OF SERVICE: 08/18/2018 DIAGNOSES: 1. Lumbar radiculopathy with lumbar spinal stenosis. 2. Post-lumbar laminectomy syndrome. HISTORY OF PRESENT ILLNESS: The patient is a 73-year-old male who returns for followup status post lumbar caudal approach epidural steroid injection x 1. The patient reports about 40% improvement overall pain in the low back and bilateral lower extremities, returning mostly in the posterior gluteus, posterior thighs, posterior calf; worse with standing, walking, changing position. The patient reports his pain is 9 on a scale of 10 at all times, at least, worst and average, is 9 today. The patient reports it is aching, sharp, dull, shooting, burning, radiating pain, constant pain becoming severe and unbearable with activity, worse again with walking and standing. The patient it does not awaken him from sleep at night, better with sitting or lying down. He sleeps about 7-8 hours at night and does not have any disturbance from the pain on this. The patient reports he is having some testicular pain. He was followed by previous urologist who is no longer practicing here and would like to have this evaluated. We will make the arrangements to have him evaluated by Urology. Otherwise, the patient did very well. No new motor or sensory deficits, no new complaints. PHYSICAL EXAMINATION: VITAL SIGNS: Blood pressure is 122/77, pulse 76, respirations 18, temperature is 97.9 degrees Fahrenheit. Height is 5 feet 6 inches, weight is 246 pounds. GENERAL: The patient is awake, alert, oriented, appropriate, very pleasant demeanor. HEENT: Shows normocephalic, atraumatic. Extraocular movements intact and symmetrical. Oral cavity: Mucous membranes moist and pink. Dentition intact. NECK: Shows anterior throat supple without palpable lymphadenopathy noted. Swallow reflex is symmetrical. CHEST: Shows normal on inspection. Breath sounds clear to auscultation bilaterally. HEART: Shows S1, S2 clear. No murmurs auscultated. ABDOMEN: Soft, nontender, nondistended, obese, but no organomegaly. BACK: Shows spine grossly in the midline. Flattening of lumbar lordotic curvature, slight exaggeration of thoracic kyphotic curvature. Lumbar paraspinous muscle shows symmetrical on inspection, shows well-healed surgical scar in the midline, which is fairly extensive. Lumbar paraspinous muscle shows symmetrical, with palpation shows some moderate tenderness diffusely bilaterally, but only diffusely without significant radiation. The patient shows good rotation and motion both laterally as well as extension and flexion without exacerbation of pain. EXTREMITIES: The patient's lower extremities show deep tendon reflexes at 1+ in the patellar, tendo calcareous tendons. Motor exam is approximately 4 on a scale of 5, but equal and symmetrical bilaterally. Peripheral pulses are 1+. No peripheral edema is noted. Options were discussed with the patient. The patient's old chart was reviewed as was his current medication regimen updated. Current review of systems updated today as well. We will proceed with a second in the series of caudal epidural steroid injection today with fluoroscopic guidance. Risks were again discussed including, but not limited to bleeding, infection, possibility of epidural hematoma, subsequent neurological compromise, dural puncture, headaches, spinal cord and/or nerve damage, side effects of steroid medication and poor results regarding pain control. The patient understands and wished to proceed. The patient will return to clinic in approximately 2 weeks for followup, was counseled on return appointment, activity level and side effects to be aware of. DIAGNOSES: 1. Lumbar radiculopathy with lumbar spinal stenosis. 2. Post-lumbar laminectomy syndrome. PROCEDURE: Caudal approach epidural steroid injection using C-arm fluoroscopic guidance under sterile prep and drape using local anesthetic. MEDICATION INJECTED: A total of 120 mg Depo-Medrol plus 10 mL of preservative-free normal saline, 2 mL of isovue for contrast. He was discharged in stable condition. The patient tolerated the procedure well, had no complications. GRIFFIN MONTAÑO MD DR: JOSLYN/ilana JOB#: [id number] / [id number]
== END | disposition home or self-care (01) ==
LOC: PNCL 09:24
PROVIDERS: ATTEND Anesthesiology
DX: M48.061 Spinal stenosis, lumbar region without neurogenic claudication (principal); M54.16 Radiculopathy, lumbar region; M96.1 Postlaminectomy syndrome, not elsewhere classified; Z88.0 Allergy status to penicillin
CPT/HCPCS: 62323; J1030; J1040; Q9965

== ENCOUNTER → 2018-09-01 | Outpatient (CLI) | payer MEDICARE, MEDICAID ==
[2017-06-25 12:15] VITALS: BP 102/66
--- NOTE | 2018-09-02 01:05 | PAIN ---
DATE OF SERVICE: 09/01/2018 PROGRESS NOTE FOR PAIN CLINIC DIAGNOSES: Lumbar radiculopathy with lumbar spinal stenosis and post-lumbar laminectomy syndrome. HISTORY OF PRESENT ILLNESS: This is a 73-year-old male who returns for followup status post caudal epidural steroid injection x 2. The patient reports only about 40% improvement overall after the last injection, still pain in his low back, bilateral lower extremities, slightly worse on the right than the left with walking, standing, changing positions. Initially, he was walking a little more easily, but again the pain reduction had only been to a minimal extent overall. The patient reports it is better with sitting or lying down, does not awaken him from sleep at night, but with walking and standing is his main complaint. The patient has to use a walker to ambulate. The patient reports the pain is aching, shooting, tingling, constant down both legs, posterior gluteus, posterior thighs, posterior calf and anterior thighs as well. The patient reports it is an 8 on a scale of 10 at its worst, 8 on average, 7 at its least and is an 8 today. The patient reports no new motor or sensory deficits, no new bowel or bladder incontinence or other complaints. PHYSICAL EXAMINATION: VITAL SIGNS: The patient's blood pressure 130/77, pulse 80, respirations 18, temperature 97.5 degrees Fahrenheit and weight is 245 pounds. GENERAL: The patient is awake, alert, oriented, appropriate, very pleasant demeanor. HEENT: Shows normocephalic and atraumatic. Extraocular movements are intact and symmetrical. Oral cavity: Mucous membranes are moist and pink. Dentition is intact. NECK: Shows anterior throat is supple without palpable lymphadenopathy noted. Swallow reflex is symmetrical. CHEST: Shows normal on inspection. Breath sounds are clear to auscultation bilaterally. HEART: Shows S1 and S2 clear. No murmurs are auscultated. ABDOMEN: Soft, obese, nontender and nondistended. No palpable organomegaly is noted. No rebound or guarding demonstrated. BACK: Shows spine grossly in the midline. Slight exaggeration of the thoracic kyphosis and flattening of the lumbar lordotic curvature with lumbar previously well-healed surgical scar. Lumbar paraspinous muscle shows symmetrical on inspection. On palpation shows some moderate tenderness diffusely bilaterally, but only diffusely. The patient has good rotational motion of the lumbar spine as well as extension and flexion without significant increase in pain. EXTREMITIES: Lower extremities show deep tendon reflexes 1+ in the patellar and tendo calcaneus tendons are equal. Motor exam is approximately 4 on a scale of 5, but symmetrical with dorsiflexion, extension, quadriceps and hamstring flexion. Peripheral pulses are 1+ posterior tibia. No peripheral edema is noted. Options were discussed with the patient. The patient's old chart was reviewed as was his current medication regimen updated. Current review of systems updated today as well. We will proceed with a third in the series of caudal approach epidural steroid injection today with fluoroscopic guidance. Risks were again discussed including, but not limited to bleeding, infection, possibility of epidural hematoma, subsequent neurological compromise, dural puncture, headaches, spinal cord and/or nerve damage, side effects of steroid medication and poor results regarding pain control. The patient understands and wished to proceed. The patient will return to the clinic in approximately 2 weeks for followup, was counseled as to return appointment, activity level and side effects to be aware of. DIAGNOSES: Lumbar radiculopathy with lumbar spinal stenosis and post-lumbar laminectomy syndrome. PROCEDURE: Lumbar epidural steroid injection, caudal approach under sterile prep and drape using local anesthetic. MEDICATION INJECTED: A total of 120 mg Depo-Medrol plus 10 mL of preservative-free normal saline and 2 mL of Isovue for contrast. CONDITION AT DISCHARGE: Stable. The patient tolerated the procedure well and had no complications. GRIFFIN MONTAÑO MD DR: JOSLYN/ilana JOB#: [id number] / [id number]
== END | disposition home or self-care (01) ==
LOC: PNCL 10:07
PROVIDERS: ATTEND Anesthesiology
DX: M48.061 Spinal stenosis, lumbar region without neurogenic claudication (principal); M54.16 Radiculopathy, lumbar region; M96.1 Postlaminectomy syndrome, not elsewhere classified
CPT/HCPCS: 62323; J1030; J1040; Q9965

== ENCOUNTER → 2018-11-23 | Outpatient (CLI) | payer MEDICARE, MEDICAID ==
[2017-06-25 12:15] VITALS: BP 102/66
[~2018-11-23] MED LIST changes: -IOHEXOL 180 MG/ML 10 ML VIAL. ONE; -methylPREDNISolone ACETATE 40 MG/ML VIAL. ONE; -methylPREDNISolone ACETATE 80 MG/ML VIAL. ONE
--- NOTE | 2018-11-24 02:38 | PAIN ---
DATE OF SERVICE: 11/23/2018 PROGRESS NOTE FOR PAIN CLINIC DIAGNOSIS: Lumbar radiculopathy with lumbar spinal stenosis, post-laminectomy syndrome. HISTORY OF PRESENT ILLNESS: The patient is a 73-year-old male who returns for followup status post lumbar epidural steroid injection x 3. The patient reports a good improvement of about 40-50% over the first 2-3 weeks, but then the pain returns for about the fourth or fifth weak and is returning in the low back and into the bilateral lower extremities as it was previously. The patient reports otherwise he does well increasing his activity with greater ease and comfort, travelling with better ease. He has been sleeping better at night; however, it has been awakening him from sleep occasionally. The patient reports about a month after the injection his pain returns in the low back and bilateral lower extremities. The patient reports no new motor or sensory deficits, no new bowel or bladder incontinence. The patient reports his pain is 8 on a scale of 10 at its worst for the past week, 8 on average, 8 at its least, and is 8 today. The patient reports tingling, burning, cramping, constant across the low back and bilateral lower extremity, posterior gluteus, posterior lateral thigh, posterior calf and into the feet as well as across the low back. Also, some pain in the shoulders. The patient reported he is using a cane and a walker and he does have his walker with him today. The patient reports no new motor or sensory deficit, no bowel or bladder incontinence. PHYSICAL EXAMINATION: VITAL SIGNS: The patient's blood pressure 114/72, pulse 76, respirations 16, temperature 98.0 degrees Fahrenheit, weighs 252 pounds. GENERAL: The patient is awake, alert, oriented, appropriate, very pleasant demeanor. HEENT: Head shows normocephalic, atraumatic. Extraocular movements are intact and symmetrical. Oral cavity: Shows mucous membranes moist and pink. Dentition is intact. NECK: Shows anterior throat supple, without palpable lymphadenopathy noted. Swallow reflex symmetrical. CHEST: Normal on inspection. Breath sounds clear to auscultation bilaterally. HEART: Shows S1, S2 clear. No murmurs auscultated. ABDOMEN: Soft, nontender, nondistended. No palpable organomegaly is noted. No rebound, guarding demonstrated. BACK: Shows spine grossly in the midline. Normal appearance of thoracic kyphosis and lumbar lordotic curvature is flattened. Lumbar paraspinal musculature shows symmetrical on inspection; on palpation shows some moderate tenderness diffusely throughout the middle and lower distribution of the some paraspinous muscles, but only diffusely without significant radiation. The patient has good rotational motion of the lumbar spine, both laterally as well as extension and flexion without significant increase in pain. EXTREMITIES: Lower extremities shows deep tendon reflexes 1+ in the patellar, tendo calcaneus tendons are equal. Motor exam is approximately 4 on scale of 5, but equal and symmetrical on dorsiflexion, extension, quadriceps and hamstring flexion. Peripheral pulses are 1+ posterior tibial. No peripheral edema is noted bilaterally. Options were discussed with the patient. The patient's old chart was reviewed as was his current medication regimen updated, current review of systems updated today as well. I will hold my further injection as it is early for him to have further injections at this time as his initial injection was in July of this year. He has had 3 so far in the past 6 months. We discussed some options for surgical alternatives with opinion. He is not interested in this as he has had two lumbar surgeries already and his MRI scan does not look as though anything significantly surgical is present. We also discussed about waiting until January for further injection and we will try extended release prednisone 5 mg, Dorothy samples were given with instructions, side effects to be aware of, to be taken once at bedtime. The patient will try this for the next week and see if this is helpful as well. In the meantime, we will maintain stretching and strengthening exercises and activity as tolerated. No followup is scheduled. GRIFFIN MONTAÑO MD DR: JOSLYN/ilana JOB#: [id number] / [id number]
== END | disposition home or self-care (01) ==
LOC: PNCL 10:54
PROVIDERS: ATTEND Anesthesiology
DX: M48.061 Spinal stenosis, lumbar region without neurogenic claudication (principal); M54.16 Radiculopathy, lumbar region; M96.1 Postlaminectomy syndrome, not elsewhere classified; Z79.891 Long term (current) use of opiate analgesic
CPT/HCPCS: G0463

== ENCOUNTER 2018-12-22 14:18 | Emergency (ER) | payer MEDICARE, MEDICAID ==
[~2018-12-22] VITALS: Ht 167.6 cm; Wt 113.4 kg
[2018-12-22 14:19] VITALS: BP 133/69
--- NOTE | 2018-12-22 14:49 | PHYS DOC ---
Past Medical History Past Medical History: Asthma, Prostatitis, Other Additional Past Medical Histor: sleep apnea Past Surgical History: Tonsillectomy, Other Additional Past Surgical Histo: back sx, umbilical hernia, L wrist Alcohol Use: Rarely Drug Use: None Adult General Chief Complaint Chief Complaint: LOWER EXT PAIN HPI HPI 73-year-old male presents to ER via EMS for complaints of right knee pain which started on Friday. Denies any direct trauma, falls, or injury. He reports on Friday he had a green party for his granddaughter and was walking more than usual. Patient states he woke up Friday morning having right knee pain with reports he has chronic joint pain due to arthritis. Patient states he has been ambulatory with a cane and walker at home. Patient states he took a hydrocodone one hour prior to arrival to ER. Patient denies any travel. Pt reports he is also on Gabapentin for neuropathy and also takes NSAIDs PRN for arthritis. Review of Systems Review of Systems Constitutional: Denies fever or chills [] Respiratory: Denies cough or shortness of breath [] Cardiovascular: No additional information not addressed in HPI [] GI: Denies abdominal pain, nausea, vomiting : Denies urinary sxs Musculoskeletal: Denies back pain. Reports rt knee pain Integument: Denies rash or skin lesions [] Neurologic: Denies focal weakness or sensory changes [] All other systems were reviewed and found to be within normal limits, except as documented in this note. Allergies Allergies Allergies Coded Allergies Type Severity Reaction Last Updated Verified Penicillins Allergy Intermediate Rash 05/06/17 Yes Physical Exam Physical Exam Constitutional: Well developed, well nourished, no acute distress, non-toxic appearance. [] HENT: Normocephalic, atraumatic, oropharynx moist, nose normal. [] Eyes: Pupils equal, conjunctiva normal, no discharge. [] Neck: Normal range of motion, no tenderness, supple, no stridor. [] Cardiovascular:Heart rate regular rhythm, no murmur [] Lungs & Thorax: Bilateral breath sounds clear to auscultation- resp. equal/nonlabored Skin: Warm, dry, no erythema, no rash. [] Back: No tenderness, no CVA tenderness. Full ROM Extremities: No cyanosis, no clubbing, ROM intact. Tender on palp. rt anterior knee without palp. deformity. Edema to lateral side of knee. No erythema or ecchymosis. 2+ bilat. posterior tibial/dorsalis pedis. No calf tenderness- symmetric calf size bilat. No posterior knee tenderness/palp. mass. No tenderness on palp. distal/proximal to rt anterior knee Neurologic: Alert and oriented X 3, normal motor function, normal sensory function, no focal deficits noted. [] Psychologic: Affect normal, judgement normal, mood normal. [] Current Patient Data Vital Signs Vital Signs Date Time Temp Pulse Resp B/P (MAP) Pulse Ox O2 Delivery O2 Flow Rate FiO2 12/22/18 14:19 98.4 77 18 133/69 (90) 95 Room Air 98.4 EKG EKG [] Radiology/Procedures Radiology/Procedures PROCEDURE: KNEE RIGHT 3V KNEE RIGHT 3V 12/22/2018 2:39 PM INDICATION: Right knee pain. No known injury. COMPARISON: None available. TECHNIQUE: 3 views the right knee are provided. FINDINGS: There is no acute fracture or dislocation. Mild lateral marginal osteophytosis.. Vascular calcifications are present Bone mineralization is within normal limits. Lateral joint space narrowing with subcortical sclerosis. Regional soft tissues are within normal limits. There is no soft tissue gas or osseous erosion. IMPRESSION: No acute fracture or dislocation. Lateral femorotibial degenerative changes as may be seen with rheumatoid arthritis. Electronically signed by: Tasha Duarte MD (12/22/2018 3:07 PM) [id number] DICTATED and SIGNED BY: TASHA DUARTE MD DATE: 12/22/18 1507 Course & Med Decision Making Course & Med Decision Making Pertinent Imaging studies reviewed. (See chart for details) Patient was evaluated in the ER for complaints of nontraumatic right knee pain and had x-ray obtained. No acute findings for fracture or dislocation. Discussed imaging report with patient- discussed degenerative findings. Discussed plans for Feng wrap and education provided on need to continue use of walker for stability. Discussed follow-up with orthopedic doctor for reevaluation and further care. Will provide Dr. Quintana's information on d/c paperwork. Feng wrap was applied by this provider and patient remained PMS intact in right lower extremity prior to and following wrap application. Patient reported with Feng wrap in place his pain improved. Patient has prescribed pain medication at home so advised to continue as prescribed. Education provided on signs and symptoms to return to ER- RICE acronym discussed. Discharge instructions were discussed. Pt was ambulatory with RN in hallway w/use of walker with steady gait. Dragon Disclaimer Dragon Disclaimer This electronic medical record was generated, in whole or in part, using a voice recognition dictation system. Departure Departure Impression: Primary Impression: Knee pain, right Disposition: HOME, SELF-CARE Condition: STABLE Referrals: GEORGIA MÉNDEZ MD (PCP) BOBBY QUINTANA II, MD Patient Instructions: Knee Pain, Knee Wraps (Elastic Bandage) and RICE Additional Instructions: Continue use of your cane for stability while walking. Continue your prescribed pain medication as directed. Follow-up with an orthopedic doctor if symptoms persist or with concerns. DL CASTELLANO APRN Dec 22, 2018 14:49
--- NOTE | 2018-12-22 15:10 | RAD ---
KNEE RIGHT 3V 12/22/2018 2:39 PM INDICATION: Right knee pain. No known injury. COMPARISON: None available. TECHNIQUE: 3 views the right knee are provided. FINDINGS: There is no acute fracture or dislocation. Mild lateral marginal osteophytosis.. Vascular calcifications are present Bone mineralization is within normal limits. Lateral joint space narrowing with subcortical sclerosis. Regional soft tissues are within normal limits. There is no soft tissue gas or osseous erosion. IMPRESSION: No acute fracture or dislocation. Lateral femorotibial degenerative changes as may be seen with rheumatoid arthritis. Electronically signed by: Brooke Bansal MD (12/22/2018 3:07 PM) [facility]
== END 2018-12-22 15:59 | disposition home or self-care (01) ==
LOC: ER 14:18
DX: M25.561 Pain in right knee (principal); G89.29 Other chronic pain; M06.9 Rheumatoid arthritis, unspecified; J45.909 Unspecified asthma, uncomplicated; Z88.0 Allergy status to penicillin
CPT/HCPCS: 73562; 99284

== ENCOUNTER → 2019-02-12 | Outpatient (CLI) | payer MEDICARE, MEDICAID ==
--- NOTE | 2019-02-12 15:08 | RAD ---
EXAM: Lower extremity arterial Doppler sonogram with ankle-brachial indices (SHAY). HISTORY: Calf pain. Peripheral vascular disease. TECHNIQUE: Doppler sonographic evaluation of the lower extremities was performed and pressure readings were assessed. FINDINGS: There are normal triphasic waveforms within the bilateral lower extremity arteries, with exception of a biphasic waveforms within the right deep femoral artery and left peroneal artery and abnormal monophasic waveforms within the right peroneal and bilateral dorsalis pedis arteries. No abnormally elevated peak systolic velocity is seen within the lower extremity arteries. Right brachial pressure: 123 mmHg Left brachial pressure: 131 mmHg Right ankle pressure: 99 mmHg Right SHAY: 1.2 Left ankle pressure: 99 mmHg Left SHAY: 1.3 IMPRESSION: 1. Normal bilateral ankle-brachial indices. 2. Abnormal monophasic waveforms within the right peroneal and bilateral dorsalis pedis arteries, suggesting hemodynamically significant proximal stenosis. There are normal peak systolic velocities within the lower extremity arteries. No occlusion is seen. Electronically signed by: Nohemi Machado MD (02/12/2019 3:05 PM) [facility]
== END | disposition home or self-care (01) ==
LOC: US 13:43
PROVIDERS: ATTEND Orthopaedic Surgery Sports Medicine
DX: M17.0 Bilateral primary osteoarthritis of knee (principal); I73.9 Peripheral vascular disease, unspecified
CPT/HCPCS: 93922; 93925

== ENCOUNTER → 2019-04-16 | Outpatient (CLI) | payer MEDICARE, MEDICAID ==
[~2019-04-16] MED LIST changes: +OXYB5TAB10 PO; -OXYB5TAB7 PO
--- NOTE | 2019-04-16 17:19 | RAD ---
EXAM: CHEST 2 VIEWS. HISTORY: Shortness of breath. COMPARISON: 03/24/2018. FINDINGS: Frontal and lateral views of the chest are obtained. Flattening of the hemidiaphragms is consistent with chronic obstructive pulmonary disease. Linear opacities in the bases are consistent with atelectasis or scarring. There is no pneumothorax or pleural effusion. The heart is mildly enlarged. Chronic right rib fractures are noted. There are atherosclerotic calcifications of the aorta. IMPRESSION: 1. Chronic obstructive pulmonary disease. Bibasilar atelectasis. 2. Mild cardiomegaly. Electronically signed by: Tomer Sanchez MD (04/16/2019 5:16 PM) [facility]
== END | disposition home or self-care (01) ==
LOC: RAD 15:00
PROVIDERS: ATTEND Family Medicine
DX: J44.9 Chronic obstructive pulmonary disease, unspecified (principal); I70.0 Atherosclerosis of aorta; I51.7 Cardiomegaly; J98.11 Atelectasis
CPT/HCPCS: 71046

== ENCOUNTER 2019-05-18 14:31 | Emergency (ER) | payer MEDICARE, MEDICAID ==
[~2019-05-18] VITALS: Ht 167.6 cm; Wt 113.4 kg
[~2019-05-18 14:31] MED LIST changes: +OMEP-229 PO; -OMEP20CA10 PO
[2019-05-18 15:05] VITALS: BP 123/71
[2019-05-18] MEDS ORDERED: FAMOTIDINE 20 MG TABLET. PO STA (15:13)
[2019-05-18] MEDS ORDERED: DEXAMETHASONE 4 MG TABLET PO STA (15:13)
[2019-05-18] MEDS ORDERED: diphenhydrAMINE 50 MG/ML VIAL IM STA (15:13)
[2019-05-18] MEDS ORDERED: DIPH25CA58 PO (15:27)
--- NOTE | 2019-05-18 15:28 | PHYS DOC ---
Past Medical History Past Medical History: Arthritis, Asthma, Prostatitis, Other Additional Past Medical Histor: sleep apnea Past Surgical History: Tonsillectomy, Other Additional Past Surgical Histo: back sx, umbilical hernia, L wrist Alcohol Use: Rarely Drug Use: None Adult General Chief Complaint Chief Complaint: SKIN PROBLEM HPI HPI Patient is a 74 year old male who presents with rash and itching this been o ngoing since yesterday afternoon after he ate. He has not tried medication for this at home. The patient denies any short of breath or difficulty swallowing. Denies any other complaints. Review of Systems Review of Systems Constitutional: Denies fever or chills [] Eyes: Denies change in visual acuity, redness, or eye pain [] HENT: Denies nasal congestion or sore throat [] Respiratory: Denies cough or shortness of breath [] Cardiovascular: No additional information not addressed in HPI [] GI: Denies abdominal pain, nausea, vomiting, bloody stools or diarrhea [] : Denies dysuria or hematuria [] Musculoskeletal: Denies back pain or joint pain [] Integument: Reports itchy rash. Neurologic: Denies headache, focal weakness or sensory changes [] Endocrine: Denies polyuria or polydipsia [] Complete systems were reviewed and found to be within normal limits, except as documented in this note. Current Medications Current Medications Current Medications Medications (Trade) Dose Ordered Sig/Sukumar Start Time Stop Time Status Last Admin Dose Admin Dexamethasone (Decadron) 10 mg 1X STAT 05/18/19 15:13 05/18/19 15:15 DC 05/18/19 15:33 10 MG Diphenhydramine HCl (Benadryl) 25 mg 1X STAT 05/18/19 15:13 05/18/19 15:15 DC 05/18/19 15:33 25 MG Famotidine (Pepcid) 20 mg 1X STAT 05/18/19 15:13 05/18/19 15:15 DC 05/18/19 15:33 20 MG Allergies Allergies Allergies Coded Allergies Type Severity Reaction Last Updated Verified Penicillins Allergy Intermediate Rash 05/06/17 Yes Physical Exam Physical Exam Constitutional: Well developed, well nourished, no acute distress, non-toxic appearance. [] HENT: Normocephalic, atraumatic, bilateral external ears normal, oropharynx m oist, no oral exudates, nose normal. [] Eyes: PERRLA, EOMI, conjunctiva normal, no discharge. [] Neck: Normal range of motion, no tenderness, supple, no stridor. [] Cardiovascular:Heart rate regular rhythm, no murmur [] Lungs & Thorax: Bilateral breath sounds clear to auscultation [] Abdomen: Bowel sounds normal, soft, no tenderness, no masses, no pulsatile masses. [] Skin: maculopapular rash on chest and bilateral arms. Back: No tenderness, no CVA tenderness. [] Extremities: No tenderness, no cyanosis, no clubbing, ROM intact, no edema. [] Neurologic: Alert and oriented X 3, normal motor function, normal sensory function, no focal deficits noted. [] Psychologic: Affect normal, judgement normal, mood normal. [] Current Patient Data Vital Signs Vital Signs Date Time Temp Pulse Resp B/P (MAP) Pulse Ox O2 Delivery O2 Flow Rate FiO2 05/18/19 15:05 98.5 78 22 123/71 (88) 94 Room Air 98.5 EKG EKG [] Radiology/Procedures Radiology/Procedures [] Course & Med Decision Making Course & Med Decision Making Pertinent Labs and Imaging studies reviewed. (See chart for details) Will give Benadryl, Decadron, and Pepcid. Will discharge on Benadryl prescription. Dragon Disclaimer Dragon Disclaimer This electronic medical record was generated, in whole or in part, using a voice recognition dictation system. Departure Departure Impression: Primary Impression: Allergic reaction Disposition: HOME, SELF-CARE Condition: STABLE Referrals: GEORGIA MÉNDEZ MD (PCP) Patient Instructions: Rash Additional Instructions: Thank you for visiting [facility]. We appreciate you trusting us with your care. If any additional problems come up don't hesitate to return to visit us. Please follow up with your primary care provider so they can plan additional care if needed and know about the problem that you had. If symptoms worsen come back to the Emergency Department. Any concerning symptoms that start such as chest pain, shortness of air, weakness or numbness on one side of the body, running high fevers or any other concerning symptoms return to the ER. Scripts Prednisone (PREDNISONE) 20 Mg Tablet 2 TAB PO DAILY, #5 TAB Prov: MALLY AYALA APRN 05/18/19 Diphenhydramine Hcl (BENADRYL) 25 Mg Capsule 25 MG PO Q6-8HRS PRN for ITCHING for 5 Days, #30 CAP Prov: MALLY AYALA APRN 05/18/19 Problem Qualifiers Primary Impression: Allergic reaction Encounter type: initial encounter Qualified Codes: T78.40XA - Allergy, unspecified, initial encounter MALLY AYALA APRN May 18, 2019 15:28
[2019-05-18] MEDS ORDERED: PRED20TA PO (16:29)
== END 2019-05-18 16:35 | disposition home or self-care (01) ==
LOC: ER 14:31
DX: T78.40XA Allergy, unspecified, initial encounter (principal); M19.90 Unspecified osteoarthritis, unspecified site; J45.909 Unspecified asthma, uncomplicated; Z88.0 Allergy status to penicillin; X58.XXXA Exposure to other specified factors, initial encounter
CPT/HCPCS: 96372; 99283; J1200; J8540

== ENCOUNTER → 2019-05-19 | Outpatient (CLI) | payer MEDICARE, MEDICAID ==
[2019-05-18 15:05] VITALS: BP 123/71
[~2019-05-19] MED LIST changes: +DIPH25CA58 PO; -OMEP-229 PO; +OMEP20CA10 PO; +PRED20TA PO
--- NOTE | 2019-05-19 14:35 | CARD ---
MR#: [id number] Date of Study: 05/19/2019 Ordering Physician: NO PCP, Referring Physician: NO PCP, Tech: Farheen Leblanc RDCS APPROVED REPORT EXAM: Two-dimensional and M-mode echocardiogram with Doppler and color Doppler. Other Information Quality : Fair Technically limited study due to INDICATION Hypertension/HCVD RISK FACTORS Hypertension Obesity 2D DIMENSIONS RVDd2.4 (2.9-3.5cm)Left Atrium(2D)3.9 (1.6-4.0cm) IVSd1.1 (0.7-1.1cm)Aortic Root(2D)2.9 (2.0-3.7cm) LVDd4.8 (3.9-5.9cm)LVOT Diameter2.2 (1.8-2.4cm) PWd1.1 (0.7-1.1cm)LVDs3.1 (2.5-4.0cm) FS (%) 34.1 %SV66.7 ml LVEF(%)60.0 (>50%) Aortic Valve AoV Peak Mike.141.8cm/sAoV VTI23.8cm AO Peak GR.8.0mmHgLVOT Peak Mike.117.6cm/s LVOT VTI 24.56cmAO Mean GR.4mmHg ADITYA (VMAX)3.25kz1QTP (VTI)3.76cm2 Mitral Valve MV E Gpoajttp61.4cm/sMV DECEL MMPZ240om MV A Qhkjkjeo23.0cm/sMV MPX58cb E/A Ratio0.8MVA (PHT)3.12cm2 TDI E/Lateral E'11.1E/Medial E'12.0 Tricuspid Valve TR P. Qhydvngv951ui/sRAP AFCLZCJS5lrZa TR Peak Gr.72hsOsZWRU54fsLj Pulmonary Vein S1 Reqtmkyz13.5cm/sD2 Jfwrokyb80.2cm/s LEFT VENTRICLE The left ventricle is normal size. There is normal left ventricular wall thickness. The left ventricu lar systolic function is normal and the ejection fraction is within normal range. The Ejection Fracti on is 55-60%. There is normal LV segmental wall motion. Transmitral Doppler flow pattern is Grade I-a bnormal relaxation pattern. RIGHT VENTRICLE The right ventricle is moderate to severely dilated. The right ventricular systolic function is jean pierre l. ATRIA The left atrium size is normal. The right atrium is mildly dilated. The interatrial septum is intact with no evidence for an atrial septal defect or patent foramen ovale as noted on 2-D or Doppler imagi ng. AORTIC VALVE The aortic valve is not well visualized but appears to be functioning normally by Doppler interrogati on. Doppler and Color Flow revealed no significant aortic regurgitation. There is no significant aort ic valvular stenosis. MITRAL VALVE The mitral valve is calcified but opens well. There is no evidence of mitral valve prolapse. There is no mitral valve stenosis. Doppler and Color-flow revealed trace mitral regurgitation. TRICUSPID VALVE The tricuspid valve is normal in structure and function. Doppler and Color Flow revealed trace tricus pid regurgitation. There is mild pulmonary hypertension. The PA pressure was estimated at 30 mmHg. Th ere is no tricuspid valve stenosis. PULMONIC VALVE The pulmonic valve is not well visualized. Doppler and Color Flow revealed no pulmonic valvular regur gitation. There is no pulmonic valvular stenosis. GREAT VESSELS The aortic root is normal in size. The ascending aorta is normal in size. The IVC was not visualized. PERICARDIAL EFFUSION There is no evidence of significant pericardial effusion. Critical Notification Critical Value: No <Conclusion> The left ventricular systolic function is normal and the ejection fraction is within normal range. Th e Ejection Fraction is 55-60%. There is normal LV segmental wall motion. The right ventricle is moderate to severely dilated. Doppler and Color Flow revealed trace tricuspid regurgitation. There is mild pulmonary hypertension. The PA pressure was estimated at 30 mmHg. Signed by : Christiano Otto, Electronically Approved : 05/19/2019 14:34:57
== END | disposition home or self-care (01) ==
LOC: ECHO 13:48
DX: I34.8 Other nonrheumatic mitral valve disorders (principal); I27.20 Pulmonary hypertension, unspecified; I11.9 Hypertensive heart disease without heart failure; E66.9 Obesity, unspecified
CPT/HCPCS: 93306

== ENCOUNTER → 2020-05-03 | Outpatient (CLI) | payer MEDICARE, MEDICAID ==
[~2020-05-03] MED LIST changes: -OMEP20CA10 PO; +OMEP20CA16 PO; -OXYC-411 PO; +OXYC1TAB20 PO
--- NOTE | 2020-05-03 17:30 | RAD ---
Scrotal ultrasound 05/03/2020 CLINICAL HISTORY: Left scrotal pain. TECHNIQUE: Using a combination of real-time ultrasound imaging and color-flow and pulse Doppler imaging techniques, duplex evaluation of the scrotal sac and its contents was performed. Multiple images were obtained. FINDINGS: Both testicles are within normal limits in size and echogenicity. The right testicle measures 4.1 x 2.7 x 2.6 cm in longitudinal, transverse, and AP dimensions. The left testicle measures 3.6 x 2.8 x 2.3 cm in size. No focal abnormality of either testicle is seen. Normal color-flow and pulse Doppler imaging to both testicles is seen. Both epididymal heads are within normal limits in size. No focal abnormality is seen. There are small bilateral hydroceles. No varicocele is seen. IMPRESSION: Small bilateral hydroceles. Otherwise negative study. Electronically signed by: Carlos Alexis MD (05/03/2020 5:27 PM) [id number]
== END ==
LOC: US 15:30
PROVIDERS: ATTEND Family Medicine
DX: N43.2 Other hydrocele (principal); N50.82 Scrotal pain
CPT/HCPCS: 76870